=== PATIENT | male | born 1970 | race Caucasian/White ===

== ENCOUNTER 2019-05-30 11:15 | Inpatient (IN) | payer OTHER ==
--- NOTE | 2019-05-30 11:34 | PDOC ---
History of Present Illness - General Chief Complaint: Chest Pain Stated Complaint: CHEST PAIN Time Seen by Provider: 05/30/19 11:33 Past History - Past Medical History Allergies/Adverse Reactions: Allergies Allergy/AdvReac Type Severity Reaction Status Date / Time No Known Allergies Allergy Verified 05/30/19 11:56 Home Medications: Ambulatory Orders NK [No Known Home Medication] 05/30/19 COPD: No Other medical history: leg pain - Suicide/Smoking/Psychosocial Hx Smoking History: Current every day smoker Number of Cigarettes Smoked Daily: 3 Information on smoking cessation initiated: No Hx Alcohol Use: No Drug/Substance Use Hx: No *Physical Exam - Vital Signs Last Vital Signs Temp Pulse Resp BP Pulse Ox 100.2 F H 98 H 19 162/94 98 05/30/19 11:15 05/30/19 11:15 05/30/19 11:15 05/30/19 11:15 05/30/19 11:15 ED Treatment Course - LABORATORY CBC & Chemistry Diagram: 05/30/19 11:56 05/30/19 11:53 Medical Decision Making - Medical Decision Making 05/30/19 12:38 HPI 48 year old man with a history of htn and cigarette use who presents with epigastric pain that onset at 0800 and woke him from sleep, described as throbbing and radiaiting to the upper back. The patient reports the pain is more epigastric in location than in the chest, but he complains of diaphoresis, shortness of breath, and some nausea. He states he has never had a pain like this before. He reports the pain improved when sitting forward, but can also improve with lying flat. He has no other ocmplaints at bedside and endorses no other medication use. ROS GENERAL/CONSTITUTIONAL: No fever or chills. No weakness. HEAD, EYES, EARS, NOSE AND THROAT: No change in vision. No ear pain or discharge. No sore throat. CARDIOVASCULAR: See HPI RESPIRATORY: No cough, wheezing, or hemoptysis. GASTROINTESTINAL: No vomiting, diarrhea or constipation. GENITOURINARY: No dysuria, frequency, or change in urination. MUSCULOSKELETAL: No joint or muscle swelling or pain. No neck or back pain. SKIN: No rash NEUROLOGIC: No headache, vertigo, loss of consciousness, or change in strength/ sensation. PE GENERAL: Awake, alert, and fully oriented, extremely diaphoretic and anxious, sitting forward HEAD: No signs of trauma, normocephalic, atraumatic EYES: EOMI, sclera anicteric, conjunctiva clear ENT:oropharynx clear without exudates. Moist mucosa NECK: Normal ROM, supple LUNGS: No distress, speaks full sentences, clear to auscultation bilaterally HEART: tachycardic rate and regular rhythm, normal S1 and S2, no murmurs, rubs or gallops, peripheral pulses normal and equal bilaterally. ABDOMEN: Soft, + epigastric and RUQ tenderness to palpation, + epigastric guarding, no rebound. No masses EXTREMITIES : Normal inspection, Normal range of motion, no edema. No clubbing or cyanosis. NEUROLOGICAL: Cranial nerves II through XII grossly intact. Normal speech, no focal sensorimotor deficits SKIN: Warm, Dry, normal turgor, no rashes or lesions noted MDM 48 year old man with a history of htn and cigarette use who presents with epigastric pain that onset at 0800 and woke him from sleep, described as throbbing and radiaiting to the upper back. DDX including but not limited to: r/o acs consider pancreatitis vs cholecystitis W/U: - cbc, cmp, lipase, trop, ekg, cxr, abd ultrasound TX: - morphine ED Course: EKG: normal sinus rhythm HR 97, no interval abnormalities, narrow QRS, ST and T wave segments and morphology normal. labs significiant for leukocytosis and slight elevation in lipase tylenol dosed CT: concerning for free air in the abdomen. morphine redosed surgery paged second liter ivf started patient npo vancomycin, zosyn, diflucan dosed Patient to be admitted to Surgery service. Julia Guerrero, PGY2 Emergency Medicine *DC/Admit/Observation/Transfer Diagnosis at time of Disposition: Perforated bowel - Discharge Dispostion Condition at time of disposition: Fair Decision to Admit order: Yes - Referrals - Patient Instructions - Post Discharge Activity
[2019-05-30] MEDS ORDERED: SODIUM CHLORIDE 1,000 ML IV STA (11:52)
[2019-05-30] MEDS ORDERED: ACETAMINOPHEN 1000 MG/100 ML VIAL (NON FORMULARY) IVPB ONE ×2 (11:52→15:09)
[2019-05-30] MEDS ORDERED: morphine SULFATE 4 MG/ML VIAL IVPUSH ONE (11:54)
[2019-05-30] MEDS ORDERED: MORPHINE SULFATE 2 MG/ML VIAL ONE (11:57)
[2019-05-30 12:19] LABS: BASO % 0.4 % (0-2.0); EOS % 0.3 % (0-4.5); LYMPH % 7.1 % (8-40); MCH 30.7 pg (25.7-33.7); MCHC 34.1 g/dl (32.0-35.9); MEAN PLT VOLUME 9.3 fl (7.5-11.1); MONO % 4.5 % (3.8-10.2); NEUT % 87.7 % (42.8-82.8); PLATELET COUNT 229 K/MM3 (134-434); RBC 5.23 M/mm3 (4.00-5.60); WHITE BLOOD COUNT 14.9 K/mm3 (4.0-10.0)
--- NOTE | 2019-05-30 12:19 | PDOC ---
Attending Attestation - Resident Resident Name: BlaineRic carpenterie - ED Attending Attestation I have performed the following: I have examined & evaluated the patient, The case was reviewed & discussed with the resident, I agree w/resident's findings & plan, Exceptions are as noted - HPI HPI: 05/30/19 12:09 48 M presenting to ED with epigastric pain radiating to L shoulder and back. Pt states that he awoke with the pain at 8 AM. States that he drank some milk and tried to have BM with no relief of the pain. Denies N/V. Denies diarrhea/ constipation. Denies CP/SOB. Pt denies ETOH use. Denies any prior abdominal surgeries. - Physicial Exam PE: 05/30/19 12:10 GENERAL: Awake, alert, and fully oriented, in no acute distress. HEAD: No signs of trauma EYES: PERRLA, EOMI, sclera anicteric, conjunctiva clear ENT: Auricles normal inspection, hearing grossly normal, nares patent, oropharynx clear without exudates. Moist mucosa NECK: Nontender, no stepoffs, Normal ROM, supple, no lymphadenopathy, JVD, or masses LUNGS: Breath sounds equal, clear to auscultation bilaterally. No wheezes, and no crackles HEART: Regular rate and rhythm, normal S1 and S2, no murmurs, rubs or gallops ABDOMEN: + epigastric and RUQ TTP, + guarding EXTREMITIES: Normal range of motion, no edema. No clubbing or cyanosis. No cords, erythema, or tenderness NEUROLOGICAL: Cranial nerves II through XII intact. 5/5 strength and sensation in all extremities, Normal speech, normal gait, normal cerebellar function SKIN: Warm, Dry, normal turgor, no rashes or lesions noted. - Critical Care Time Total Critical Care Time: 120 Critical Care Statement: The care of this patient involved high complexity decision making to prevent further life threatening deterioration of the patient 's condition and/or to evaluate & treat vital organ system(s) failure or risk of failure. - Medical Decision Making 05/30/19 12:13 48 M with epigastric pain radiating towards back and shoulder. Exam notable for epigastric and RUQ TTP. Pt febrile in ED to 100.2. Suspicious for acute [place] vs pancreatitis. Aortic dissection less likely given equal pulses bilaterally. - Labs, lipase, trop - US RUQ and aorta - Consider CT - Pain control 05/30/19 15:29 US shows normal GB + free fluid in RUQ CT obtained, shows free air, suspect perf Abx ordered NPO Surgery consult paged 05/30/19 16:05 Surgery paged again, awaiting call back 05/30/19 16:21 Dr. Sepulveda aware of pt
[2019-05-30 12:55] LABS: ALBUMIN 4.2 g/dl (3.4-5.0); BILIRUBIN,TOTAL 0.6 mg/dL (0.2-1); BLOOD UREA NITROGEN 12.5 mg/dL (7-18); CALCIUM 10.1 mg/dL (8.5-10.1); POTASSIUM 4.4 mmol/L (3.5-5.1); TOT PROT 7.8 g/dl (6.4-8.2)
[2019-05-30 13:07] LABS: INR 0.94 (0.83-1.09); PROTHROMBIN TIME (PATIENT) 11.1 SEC (9.7-13.0)
[2019-05-30] MEDS ORDERED: FLUCONAZOLE 100 MG TABLET (UD) PO ONE (15:28)
[2019-05-30] MEDS ORDERED: VANCOMYCIN HCL 1,500 MG in DEXTROSE 5%-WATER - 500 ML IVPB ONE (15:28)
[2019-05-30] MEDS ORDERED: ACETAMINOPHEN INJECTION 100 ML IVPB ONE ×2 (15:28→20:15)
[2019-05-30] MEDS ORDERED: PIPERACILLIN/TAZOB 4.5 GM 4.5 GM in DEXTROSE 5%-WATER 100 ML IVPB ONE (15:28)
[2019-05-30] MEDS ORDERED: SODIUM CHLORIDE 1,000 ML IV SCH (15:30)
[2019-05-30] MEDS ORDERED: morphine CARPU-JECT 4 MG/1 ML DISP.SYRIN IVPUSH ONE (15:35)
[2019-05-30] MEDS ORDERED: morphine SULFATE 4 MG/ML VIAL ONE (15:36)
[2019-05-30] MEDS ORDERED: FLUCONAZOLE 100 MG TABLET (UD) ONE (16:01)
[2019-05-30] MEDS ORDERED: VANCOMYCIN 1 GRAM (PRE-DOCKED) 1,000 MG/250 ML BAG IVPB ONE (16:02)
[2019-05-30] MEDS ORDERED: PIPERACILLIN/TAZOB 4.5 GM 4.5 GM/100 ML BAG IVPB ONE (16:02)
[2019-05-30] MEDS ORDERED: MORPHINE SULFATE 2 MG/ML VIAL IVPUSH PRN (16:48)
[2019-05-30] MEDS ORDERED: LACTATED RINGERS SOLUTION 1,000 ML IV STA (16:48)
--- NOTE | 2019-05-30 16:57 | CONSULT ---
Consultation: REQUESTING PROVIDER: Dr. Herrera CONSULT REQUEST: We have been asked to medically evaluate this patient for ICU admission HISTORY OF PRESENT ILLNESS: Patient is an 79 year old male with history of back pain presents with complaint of abdominal pain. Patient endorses sudden onset of sharp, diffuse abdominal pain radiating to the back that woke him up from sleep around 8AM. Endorses that he last ate two day old pasta Bill from a restaurant, and drank a glass of milk this morning, in attempt to palliate the pain. Patient denies nausea, or vomiting. Last bowel movement was yesterday evening described as loose brown bowel movement, without blood or melena. Patient endorses taking Advil liquid gel ocassionally for pain, last taken yesterday evening. Patient denies similar symptoms in past. In ED, abdomen, pelvis CT revealed pneumoperitoneum concerning for viscus perforation. Free air within right upper abdomen. Possible diffuse colonic thickening with mesenteric stranding noted. Dilated bowel loops concerning for illeus. Patient noted to be diaphoretic, abdomen tensely distended. Past Medical History: Hypertension Past Surgical History: Open appendectomy (as child), left foot bunionectomy, discectomy Family history: Mother: heart failure -Father: cancer (unknown as to type) Social: Current smoker on and off for past 30 years. Denies alcohol consumption. Denies illicit drug use. 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 REVIEW OF SYSTEMS: CONSTITUTIONAL: Admits: diaphoresis, generalized weakness. Absent: fever, chills, malaise, loss of appetite, weight change HEENT: Absent: rhinorrhea, nasal congestion, throat pain, throat swelling, difficulty swallowing, mouth swelling, ear pain, eye pain, visual changes CARDIOVASCULAR: Absent: chest pain, syncope, palpitations, irregular heart rate, lightheadedness , peripheral edema RESPIRATORY: Admits; shortness of breath. Absent: cough, dyspnea with exertion, orthopnea, wheezing, stridor, hemoptysis GASTROINTESTINAL: Admits: abdominal pain, abdominal distension. Absent: nausea, vomiting, diarrhea , constipation, melena, hematochezia GENITOURINARY: Absent: dysuria, frequency, urgency, hesitancy, hematuria, flank pain, genital pain MUSCULOSKELETAL: Admits: back pain. Absent: myalgia, arthralgia, joint swelling, neck pain SKIN: Absent: rash, itching, pallor HEMATOLOGIC/IMMUNOLOGIC: Absent: easy bleeding, easy bruising, lymphadenopathy, frequent infections ENDOCRINE: Absent: unexplained weight gain, unexplained weight loss, heat intolerance, cold intolerance NEUROLOGIC: Absent: headache, focal weakness or paresthesias, dizziness, unsteady gait, seizure, mental status changes, bladder or bowel incontinence PSYCHIATRIC: Absent: anxiety, depression, suicidal or homicidal ideation, hallucinations. PHYSICAL EXAMINATION Vital Signs - 24 hr 05/30/19 11:15 Temperature 100.2 F H Pulse Rate 98 H Respiratory 19 Rate Blood Pressure 162/94 O2 Sat by Pulse 98 Oximetry (%) GENERAL: Awake, alert, and fully oriented. Diaphoretic, in acute distress. HEAD: Normal with no signs of trauma. EYES: Pupils equal, round and reactive to light, extraocular movements intact, sclera anicteric, conjunctiva clear. EARS, NOSE, THROAT: Ears normal, nares patent, oropharynx clear without exudates. Moist mucous membranes. NECK: Normal range of motion, supple without lymphadenopathy, or JVD LUNGS: Breath sounds equal, clear to auscultation bilaterally. No wheezes, and no crackles. No accessory muscle use. HEART: Regular rate and rhythm, normal S1 and S2 without murmur, rub or gallop. ABDOMEN: Firm, distended. Tender to light palpation x4 quadrants. Rebound history elicited. MUSCULOSKELETAL: Normal range of motion x4 joints. Strength 5/5 bilateral upper and lower extremities. EXTREMITIES: 2+ radial, dorsalis pedis pulses, warm, well-perfused. No cyanosis. No peripheral edema. NEUROLOGICAL: Cranial nerves II-XII intact. Normal speech. No gross focal deficits. PSYCHIATRIC: Cooperative. Good eye contact. Appropriate mood and affect. SKIN: Warm, diaphoretic. Horizontal well healed appendectomy surgical scar at right lower quadrant. Laboratory Results - last 24 hr 05/30/19 05/30/19 05/30/19 11:53 11:53 11:56 WBC RBC Hgb Hct MCV MCH MCHC RDW Plt Count MPV Absolute Neuts (auto) Neutrophils % Lymphocytes % Monocytes % Eosinophils % Basophils % Nucleated RBC % PT with INR INR PTT (Actin FS) 30.8 Sodium 139 Potassium 4.4 Chloride 103 Carbon Dioxide 28 Anion Gap 8 BUN 12.5 Creatinine 1.0 Est GFR (CKD-EPI)AfAm 101.26 Est GFR (CKD-EPI)NonAf 87.37 Random Glucose 169 H Lactic Acid Calcium 10.1 Total Bilirubin 0.6 AST 13 L ALT 28 Alkaline Phosphatase 106 Creatine Kinase 55 Troponin I < 0.02 Total Protein 7.8 Albumin 4.2 Lipase 544 H Blood Type Antibody Screen 05/30/19 05/30/19 05/30/19 11:56 11:56 13:06 WBC 14.9 H RBC 5.23 Hgb 16.0 Hct 47.0 MCV 90.0 MCH 30.7 MCHC 34.1 RDW 14.0 Plt Count 229 MPV 9.3 Absolute Neuts (auto) 13.0 H Neutrophils % 87.7 H Lymphocytes % 7.1 L Monocytes % 4.5 Eosinophils % 0.3 Basophils % 0.4 Nucleated RBC % 0 PT with INR 11.10 INR 0.94 PTT (Actin FS) Sodium Potassium Chloride Carbon Dioxide Anion Gap BUN Creatinine Est GFR (CKD-EPI)AfAm Est GFR (CKD-EPI)NonAf Random Glucose Lactic Acid 2.4 H* Calcium Total Bilirubin AST ALT Alkaline Phosphatase Creatine Kinase Troponin I Total Protein Albumin Lipase Blood Type Antibody Screen 05/30/19 15:06 WBC RBC Hgb Hct MCV MCH MCHC RDW Plt Count MPV Absolute Neuts (auto) Neutrophils % Lymphocytes % Monocytes % Eosinophils % Basophils % Nucleated RBC % PT with INR INR PTT (Actin FS) Sodium Potassium Chloride Carbon Dioxide Anion Gap BUN Creatinine Est GFR (CKD-EPI)AfAm Est GFR (CKD-EPI)NonAf Random Glucose Lactic Acid Calcium Total Bilirubin AST ALT Alkaline Phosphatase Creatine Kinase Troponin I Total Protein Albumin Lipase Blood Type B POSITIVE Antibody Screen Negative Active Medications Generic Name Dose Route Start Last Admin Trade Name Freq PRN Reason Stop Dose Admin Vancomycin HCl 1,500 mg/ 500 mls @ 250 mls/hr 05/30/19 15:28 Dextrose IVPB 05/30/19 17:27 ONCE ONE Sodium Chloride 1,000 mls @ 42 mls/hr 05/30/19 15:30 05/30/19 15:46 Normal Saline - IV 42 mls/hr ASDIR [facility] Administration ASSESSMENT/PLAN: Patient is an 79 year old male with history of hypertension presents with complaint of abdominal pain. Neurologic -Patient is awake, alert, fully oriented. -Monitor for signs of mental status change Cardiac -Currently normotensive. Monitor hemodynamics. Pulmonary -Saturating well on room air. -Monitor for change in oxygen demand. Maintain oxygen saturation greater than 90% Gastrointestinal -CT abdomen, pelvis reveals pneumoperitoneum concerning for viscus perforation. Free air within right upper abdomen. Possible diffuse colonic thickening with mesenteric stranding noted. Dilated bowel loops concerning for illeus. -General surgery evaluation (Dr. Sepulveda) -Lactic acidosis 2.4; patient receiving fluid hydration, and pending surgical evaluation. -NPO Infectious disease -Patient received prophylactic Vancomycin 1500mg IV, Zosyn 4.5 grams IV. -Follow blood cultures FEN -Fluids: IV normal saline -Electrolytes: Within normal limits, follow CMP -Nutrition: NPO Prophylaxis -Currently holding chemical anticoagulation pending general surgery evaluation. Disposition: Pending General Surgery evaluation. Please re-consult as necessary for further re-evaluation. Visit type - Emergency Visit Emergency Visit: Yes ED Registration Date: 05/30/19 Care time: The patient presented to the Emergency Department on the above date and was hospitalized for further evaluation of their emergent condition. - New Patient This patient is new to me today: Yes Date on this admission: 05/30/19 - Critical Care Critical Care patient: No ATTENDING PHYSICIAN STATEMENT I saw and evaluated the patient. I reviewed the resident's note and discussed the case with the resident. I agree with the resident's findings and plan as documented. SUBJECTIVE: OBJECTIVE: ASSESSMENT AND PLAN:
[2019-05-30] MEDS ORDERED: LACTATED RINGERS SOLUTION 1,000 ML IV SCH ×2 (17:00→17:15)
[2019-05-30] MEDS ORDERED: PANTOPRAZOLE SODIUM 40 MG VIAL IVPUSH SCH (17:00)
--- NOTE | 2019-05-30 17:04 | HP ---
Admitting History and Physical - Admission Chief Complaint: Abdomnial Pain History of Present Illness: 48yo male PMH developmental delay, HTN, painful LE varicose veins, s/p left foot surgery and back surgery presented to ED this afternoon report acute onset upper abdominal pain gradually worsening since 8AM. He is a poor historian. He has never experience anything similar in the past. His pain started in the upper abdomen but is now diffuse. He reports last meal was last night, he denies significant symptoms of heartburn or acid reflux. He does however take NSAID for back pain and is a daily smoker. He has not had endoscopy or previous abdominal surgery. Family history of cancer. We were called to evaluate and treat. History Source: Patient, Medical Record Limitations to Obtaining History: No Limitations - Past Medical History RECORDS CUSTODIAN: Yes: Other (Developmental Delay) Cardiovascular: Yes: HTN Musculoskeletal: Yes: Chronic low back pain, Other (Left foot bunion) - Past Surgical History Additional Past Surgical History: bunion surgery, back surgery (herniated disc) - Smoking History Smoking history: Current every day smoker Have you smoked in the past 12 months: Yes Aproximately how many cigarettes per day: 3 - Alcohol/Substance Use Hx Alcohol Use: No History of Substance Use: reports: None - Social History Usual Living Arrangement: Yes: With Spouse History of Recent Travel: Yes Other Social History: 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 denies: Chills Eyes: denies: Blind Spots, Recent Change in Vision HENT: denies: Difficult Swallowing, Throat Pain Cardiovascular: denies: Chest Pain, Palpitations Respiratory: denies: Cough, SOB Gastrointestinal: reports: Abdominal Pain, Indigestion. denies: Constipation, Diarrhea Genitourinary: denies: Burning, Discharge, Dysuria Breasts: reports: No Symptoms Reported. denies: Pain Musculoskeletal: reports: Back Pain, Other (Left foot pain). denies: Muscle Pain, Muscle Cramps Integumentary: denies: Lesions, Lump, Pallor Neurological: denies: Seizure, Syncope Endocrine: denies: Unexplained Weight Gain, Unexplained Weight Loss Hematology/Lymphatic: denies: Excessive Bleeding Psychiatric: denies: Anxiety Physical Examination Vital Signs: Vital Signs Temperature 99.8 F H 05/30/19 16:42 Pulse Rate 86 05/30/19 16:42 Respiratory Rate 19 05/30/19 16:42 Blood Pressure 136/85 05/30/19 16:42 O2 Sat by Pulse Oximetry (%) 100 05/30/19 16:42 Vital Signs Period Temp Pulse Resp BP Sys/Thomas Pulse Ox Last 24 Hr 99.8 F-100.3 F 86-98 19-20 132-162/78-94 96-100 Constitutional: Yes: Well Nourished, Calm, Mild Distress. No: No Distress Eyes: Yes: Conjunctiva Clear, EOM Intact HENT: Yes: Atraumatic, Normocephalic Cardiovascular: Yes: Regular Rate and Rhythm, S1, S2. No: Murmur Gastrointestinal: Yes: Normal Bowel Sounds, Soft, Distention, Tenderness, Tenderness, Epigastrium, Tenderness, Rebound, Other (centrally typmpanitic). No : Abdomen, Obese, Ascites, Pulsatile Mass, Vomiting Renal/: No: CVA Tenderness - Left, CVA Tenderness - Right Extremities: Yes: Other (varicose veins). No: Cool, Cyanosis Edema: Yes Peripheral Pulses: Left Radial: 2+, Right Radial: 2+, Left Doralis Pedis: 2+, Right Dorsalis Pedis: 2+, Left Femoral: 2+, Right Femoral: 2+ Labs: CBC, BMP 05/30/19 11:56 05/30/19 11:53 Imaging - Results Cat Scan: Report Reviewed, Image Reviewed (Free air uncertain origin) Problem List - Problems (1) Perforated abdominal viscus Assessment/Plan: 48yo male HTN with free air on CT scan and peritonitis. He has WBC 14.9 and fever 100.3, otherwise hemodynamically stable NPO and IVF hydation IV antibiotics Hospitalist, GI and ID consults OR for emergency exploratoy laparotomy, possible bowel resection, possible ostomy, possible shannan patch Discussed with patient risks, benefits and alternatives of aforemention Procedure, including but not limited to bleeding, infection, injury to adjacent structures, leak or injury, intraabdominal abscess, incisional hernia, need for further procedures, ; alternatives include antibiotics, delayed or no surgery - risks of this include failure of nonoperative therapy, perforation, sepsis, recurrence, . Patient desires to proceed with operation - will take to OR for above. Informed consent signed for same. Thank you for the opportunity to participate in the care of this patient. Code(s): UGV0276 - (2) HTN (hypertension) Code(s): I10 - ESSENTIAL (PRIMARY) HYPERTENSION Qualifiers: Hypertension type: essential hypertension Qualified Code(s): I10 - Essential (primary) hypertension (3) Abdominal pain in male Code(s): R10.9 - UNSPECIFIED ABDOMINAL PAIN (4) NSAID induced gastritis Code(s): K29.60 - OTHER GASTRITIS WITHOUT BLEEDING; T39.395A - ADVERSE EFFECT OF NONSTEROIDAL ANTI-INFLAMMATORY DRUGS, INIT (5) NSAID-associated gastropathy Code(s): K31.9 - DISEASE OF STOMACH AND DUODENUM, UNSPECIFIED; T39.395A - ADVERSE EFFECT OF NONSTEROIDAL ANTI-INFLAMMATORY DRUGS, INIT
[2019-05-30] MEDS ORDERED: PANTOPRAZOLE SODIUM 40 MG/100 ML BAG IVPB ONE (17:10)
[2019-05-30] MEDS ORDERED: PROMETHAZINE HCL 25 MG/1 ML VIAL IVPUSH PRN (17:13)
[2019-05-30] MEDS ORDERED: ONDANSETRON 4 MG/2 ML VIAL IVPUSH PRN ×2 (17:13→20:34)
[2019-05-30] MEDS ORDERED: FLUCONAZOLE IVPB SCH (17:15)
[2019-05-30] MEDS ORDERED: NS IVPB SCH (17:15)
[2019-05-30] MEDS ORDERED: HYDROmorphone *PCA* 10MG/50ML DISP.SYRIN PCA SCH ×2 (17:15→20:38)
--- NOTE | 2019-05-30 17:17 | EKG ---
Test Reason : Blood Pressure : / mmHG Vent. Rate : 097 BPM Atrial Rate : 097 BPM P-R Int : 144 ms QRS Dur : 078 ms QT Int : 360 ms P-R-T Axes : 044 017 052 degrees QTc Int : 457 ms NORMAL SINUS RHYTHM SEPTAL INFARCT , AGE UNDETERMINED ABNORMAL ECG NO PREVIOUS ECGS AVAILABLE Confirmed by CHU MAY, MARTIN ([id number]) on 05/30/2019 5:17:13 PM Referred By: Confirmed By:MARTIN SAGE MD
[2019-05-30] MEDS ORDERED: PROPOFOL 20 ML ONE ×2 (17:37)
[2019-05-30] MEDS ORDERED: fentaNYL CITRATE 250 MCG/5 ML VIAL ONE ×2 (17:37→19:04)
[2019-05-30] MEDS ORDERED: ROCURONIUM BROMIDE 50 MG/5 ML SYRINGE ONE (17:37)
[2019-05-30] MEDS ORDERED: EPHEDRINE SULFATE/0.9% NACL/PF 50 MG/10 ML SYRINGE NR ONE (17:38)
[2019-05-30] MEDS ORDERED: LIDOCAINE HCL/PF 2% SDV 5ML VIAL ONE ×2 (17:38→19:19)
--- NOTE | 2019-05-30 17:42 | CONSULT ---
Consultation: REQUESTING PROVIDER:Dr. Sepulveda CONSULT REQUEST: We have been asked to medically evaluate this patient for high blood pressure. HISTORY OF PRESENT ILLNESS: Patient is a 48 year old male with no significant past medical history, presented to the ED due to sudden onset diffuse abdominal pain, radiating to the back that started this morning. Patient reported he experienced severe diffuse abdominal pain that woke him up this morning, that was accompanied by abdominal bloating. He denies any fever, chills, nausea or vomiting, diarrhea, constipation. Patient reported his only medication is Advil which he takes as needed for chronic back pain. Due to persistent pain, patient came to the ED. At the ED, CT scan of the abdomen revealed pneumoperitoeum concerning for viscus perforation, free air within the right upper abdomen. Patient was evaluated by Surgery and sent directly to the OR. Past Medical History: none Past Surgical History: Open appendectomy, left foot bunionectomy, discectomy Family history: Father: cancer (unknown as to type) Social: Current smoker on and off for past 30 years. Denies alcohol consumption. Denies illicit drug use. 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 REVIEW OF SYSTEMS: CONSTITUTIONAL: Absent: fever, chills, diaphoresis, generalized weakness, malaise, loss of appetite, weight change HEENT: Absent: rhinorrhea, nasal congestion, throat pain, throat swelling, difficulty swallowing, mouth swelling, ear pain, eye pain, visual changes CARDIOVASCULAR: Absent: chest pain, syncope, palpitations, irregular heart rate, lightheadedness , peripheral edema RESPIRATORY: Absent: cough, shortness of breath, dyspnea with exertion, orthopnea, wheezing, stridor, hemoptysis GASTROINTESTINAL: abdominal pain Absent: abdominal distension, nausea, vomiting, diarrhea, constipation, melena, hematochezia GENITOURINARY: Absent: dysuria, frequency, urgency, hesitancy, hematuria, flank pain, genital pain MUSCULOSKELETAL: Absent: myalgia, arthralgia, joint swelling, back pain, neck pain SKIN: Absent: rash, itching, pallor HEMATOLOGIC/IMMUNOLOGIC: Absent: easy bleeding, easy bruising, lymphadenopathy, frequent infections ENDOCRINE: Absent: unexplained weight gain, unexplained weight loss, heat intolerance, cold intolerance NEUROLOGIC: Absent: headache, focal weakness or paresthesias, dizziness, unsteady gait, seizure, mental status changes, bladder or bowel incontinence PSYCHIATRIC: Absent: anxiety, depression, suicidal or homicidal ideation, hallucinations. PHYSICAL EXAMINATION Vital Signs - 24 hr 05/30/19 05/30/19 05/30/19 11:15 16:42 17:27 Temperature 100.2 F H 99.8 F H 100.3 F H Pulse Rate 98 H Pulse Rate [ 86 97 H Right Radial] Respiratory 19 19 20 Rate Blood Pressure 162/94 Blood Pressure 136/85 132/78 [Left Arm] O2 Sat by Pulse 98 100 96 Oximetry (%) GENERAL: Awake, alert, and fully oriented, in mild distress. HEAD: Normal with no signs of trauma. EYES: PERRLA, EOMI, sclera anicteric, conjunctiva clear. EARS, NOSE, THROAT: Dry mucous membranes. NECK: Normal range of motion, supple. LUNGS: Breath sounds equal, clear to auscultation bilaterally. HEART: Regular rate and rhythm, normal S1 and S2 without murmur, rub or gallop. ABDOMEN: +Tenderness on all quadrants, nondistended, NABS. +Guarding. UPPER EXTREMITIES: 2+ pulses, warm, well-perfused.No peripheral edema. LOWER EXTREMITIES: 2+ pulses, warm, well-perfused. No peripheral edema. SKIN: Warm, dry, normal turgor, no rashes or lesions noted. Laboratory Results - last 24 hr 05/30/19 05/30/19 05/30/19 11:53 11:53 11:56 WBC RBC Hgb Hct MCV MCH MCHC RDW Plt Count MPV Absolute Neuts (auto) Neutrophils % Lymphocytes % Monocytes % Eosinophils % Basophils % Nucleated RBC % PT with INR INR PTT (Actin FS) 30.8 Sodium 139 Potassium 4.4 Chloride 103 Carbon Dioxide 28 Anion Gap 8 BUN 12.5 Creatinine 1.0 Est GFR (CKD-EPI)AfAm 101.26 Est GFR (CKD-EPI)NonAf 87.37 Random Glucose 169 H Lactic Acid Calcium 10.1 Total Bilirubin 0.6 AST 13 L ALT 28 Alkaline Phosphatase 106 Creatine Kinase 55 Troponin I < 0.02 Total Protein 7.8 Albumin 4.2 Lipase 544 H Blood Type Antibody Screen 05/30/19 05/30/19 05/30/19 11:56 11:56 13:06 WBC 14.9 H RBC 5.23 Hgb 16.0 Hct 47.0 MCV 90.0 MCH 30.7 MCHC 34.1 RDW 14.0 Plt Count 229 MPV 9.3 Absolute Neuts (auto) 13.0 H Neutrophils % 87.7 H Lymphocytes % 7.1 L Monocytes % 4.5 Eosinophils % 0.3 Basophils % 0.4 Nucleated RBC % 0 PT with INR 11.10 INR 0.94 PTT (Actin FS) Sodium Potassium Chloride Carbon Dioxide Anion Gap BUN Creatinine Est GFR (CKD-EPI)AfAm Est GFR (CKD-EPI)NonAf Random Glucose Lactic Acid 2.4 H* Calcium Total Bilirubin AST ALT Alkaline Phosphatase Creatine Kinase Troponin I Total Protein Albumin Lipase Blood Type Antibody Screen 05/30/19 15:06 WBC RBC Hgb Hct MCV MCH MCHC RDW Plt Count MPV Absolute Neuts (auto) Neutrophils % Lymphocytes % Monocytes % Eosinophils % Basophils % Nucleated RBC % PT with INR INR PTT (Actin FS) Sodium Potassium Chloride Carbon Dioxide Anion Gap BUN Creatinine Est GFR (CKD-EPI)AfAm Est GFR (CKD-EPI)NonAf Random Glucose Lactic Acid Calcium Total Bilirubin AST ALT Alkaline Phosphatase Creatine Kinase Troponin I Total Protein Albumin Lipase Blood Type B POSITIVE Antibody Screen Negative Active Medications Generic Name Dose Route Start Last Admin Trade Name Freq PRN Reason Stop Dose Admin Fentanyl 50 mcg 05/30/19 17:13 Sublimaze Injection - IVPUSH [id number] PRN PAIN-PACU ORDER X 4 DOSES ONLY Heparin Sodium (Porcine) 5,000 unit 05/30/19 18:00 Heparin - SQ Q8H-IV GIOVANA Hydromorphone HCl 10 mg 05/30/19 17:15 Hydromorphone 10 Mg/50 Ml-Ns SHIRT SORTER 06/06/19 17:14 SHIRT SORTER GIOVANA Protocol Sodium Chloride 1,000 mls @ 42 mls/hr 05/30/19 15:30 05/30/19 15:46 Normal Saline - IV 42 mls/hr ASDIR GIOVANA Administration Lactated Ringer's 1,000 mls @ 125 mls/hr 05/30/19 17:00 Lactated Ringers Solution IV ASDIR GIOVANA Lactated Ringer's 1,000 mls @ 1,000 mls/hr 05/30/19 16:48 05/30/19 17:22 Lactated Ringers Solution IV 05/30/19 17:47 1,000 mls/hr ONCE STA Administration Levofloxacin 750 mg in 150 mls @ 100 mls/hr 05/30/19 17:01 05/30/19 17:23 Levaquin 750 Mg Premixed Ivpb - IVPB 05/30/19 18:30 100 mls/hr ONCE ONE Administration Protocol Metronidazole 500 mg in 100 mls @ 100 mls/hr 05/30/19 18:00 Flagyl 500mg Premixed Ivpb - IVPB Q8H-IV GIOVANA Fluconazole 50 mls @ 50 mls/hr 05/30/19 17:15 Diflucan 200 Mg/Ns Premixed Ivpb - IVPB DAILY GIOVANA Lactated Ringer's 1,000 mls @ 125 mls/hr 05/30/19 17:15 Lactated Ringers Solution IV ASDIR GIOVANA Morphine Sulfate 4 mg 05/30/19 16:48 Morphine Sulfate IVPUSH Q4H PRN PAIN LEVEL 7 - 10 Ondansetron HCl 4 mg 05/30/19 17:13 Zofran Injection IVPUSH Q6H PRN NAUSEA AND/OR VOMITING Pantoprazole Sodium 40 mg 05/30/19 17:00 05/30/19 17:20 Protonix Iv IVPUSH 40 mg DAILY GIOVANA Administration Promethazine HCl 12.5 mg 05/30/19 17:13 Phenergan Injection - IVPUSH Q6H PRN NAUSEA-FOR RESCUE AFTER 15 MIN ASSESSMENT/PLAN: #Abdominal pain 2/2 Pneumoperitoneum -CTAP: pneumoperitoneum concerning for viscus perforation. Free air within right upper abdomen. Possible diffuse colonic thickening with mesenteric stranding noted. Dilated bowel loops concerning for illeus. -Surgery (Dr Sepulveda) on board -To OR for emergency exploratory laparotomy -Lactic acid 2.4 -Continue IV fluids -Keep NPO -IV Antibiotics #FEN -IV LR @125cc/hr -Routine bmp monitoring -NPO #Prophylaxis -SCDs #Disposition -full code -To OR for emergency exploratory laparotomy Visit type - Emergency Visit Emergency Visit: Yes ED Registration Date: 05/30/19 Care time: The patient presented to the Emergency Department on the above date and was hospitalized for further evaluation of their emergent condition. - New Patient This patient is new to me today: Yes Date on this admission: 06/11/19 - Critical Care Critical Care patient: No ATTENDING PHYSICIAN STATEMENT I saw and evaluated the patient. I reviewed the resident's note and discussed the case with the resident. I agree with the resident's findings and plan as documented. SUBJECTIVE: OBJECTIVE: ASSESSMENT AND PLAN:
--- NOTE | 2019-05-30 17:47 | OP ---
Operative Note - Note: Operative Date: 05/30/19 Pre-Operative Diagnosis: perforated viscus, surgical abdomen, free air Operation: Exploratory lapartomy, Wilton Singh Omental Patch of pre-pyloic gastric ulcer Findings: 1cm anterior perforation in pre-pyloric ulcer, omental patch applied with 2-0 silk suture Post-Operative Diagnosis: Other (anterior pre-pyloric ulcer) Surgeon: Luis Antonio Sepulveda Network Infrastructure Architect: Deep Cruz Anesthesiologist/CONSTRUCTION RIGGER: Mary Hood Anesthesia: General Specimens Removed: none Estimated Blood Loss (mls): 20 Drains & Tubes with Location: andino, RUQ CHRIST size 10 flat Drains, Volume Out (mls): 900 (andino) Fluid Volume Replaced (mls): 1,500 Operative Report Dictated: Yes
[2019-05-30] MEDS ORDERED: HEPARIN NA (PORCINE) 5,000 UNITS/ML 1ML VIAL SQ SCH (18:00)
--- NOTE | 2019-05-30 18:15 | PN ---
Teaching Attending Note Name of Resident: Darcie Rodríguez ATTENDING PHYSICIAN STATEMENT I saw and evaluated the patient. I reviewed the resident's note and discussed the case with the resident. I agree with the resident's findings and plan as documented. PCP: [facility] (covered by Dr. PINZON) SUBJECTIVE: Complains of severe abdominal pain, diaphoresis, fever OBJECTIVE: T 100.3 Hemodynamically Stable. Diaphoretic ++. Mildly confused. Last Vital Signs Temp Pulse Resp BP Pulse Ox 100.3 F H 97 H 20 132/78 96 05/30/19 17:27 05/30/19 17:27 05/30/19 17:27 05/30/19 17:27 05/30/19 17:27 HEENT - Atrauamtic, Normocephalic. Heart - S1, S2, RRR Lungs - clear to auscultation Abdomen - Tender++. Decreased bowel Sounds normal. Extremities - no edema, no calf tenderness Laboratory Results - last 24 hr 05/30/19 05/30/19 05/30/19 11:53 11:53 11:56 WBC RBC Hgb Hct MCV MCH MCHC RDW Plt Count MPV Absolute Neuts (auto) Neutrophils % Lymphocytes % Monocytes % Eosinophils % Basophils % Nucleated RBC % PT with INR INR PTT (Actin FS) 30.8 Sodium 139 Potassium 4.4 Chloride 103 Carbon Dioxide 28 Anion Gap 8 BUN 12.5 Creatinine 1.0 Est GFR (CKD-EPI)AfAm 101.26 Est GFR (CKD-EPI)NonAf 87.37 Random Glucose 169 H Lactic Acid Calcium 10.1 Total Bilirubin 0.6 AST 13 L ALT 28 Alkaline Phosphatase 106 Creatine Kinase 55 Troponin I < 0.02 Total Protein 7.8 Albumin 4.2 Lipase 544 H Blood Type Antibody Screen 05/30/19 05/30/19 05/30/19 11:56 11:56 13:06 WBC 14.9 H RBC 5.23 Hgb 16.0 Hct 47.0 MCV 90.0 MCH 30.7 MCHC 34.1 RDW 14.0 Plt Count 229 MPV 9.3 Absolute Neuts (auto) 13.0 H Neutrophils % 87.7 H Lymphocytes % 7.1 L Monocytes % 4.5 Eosinophils % 0.3 Basophils % 0.4 Nucleated RBC % 0 PT with INR 11.10 INR 0.94 PTT (Actin FS) Sodium Potassium Chloride Carbon Dioxide Anion Gap BUN Creatinine Est GFR (CKD-EPI)AfAm Est GFR (CKD-EPI)NonAf Random Glucose Lactic Acid 2.4 H* Calcium Total Bilirubin AST ALT Alkaline Phosphatase Creatine Kinase Troponin I Total Protein Albumin Lipase Blood Type Antibody Screen 05/30/19 15:06 WBC RBC Hgb Hct MCV MCH MCHC RDW Plt Count MPV Absolute Neuts (auto) Neutrophils % Lymphocytes % Monocytes % Eosinophils % Basophils % Nucleated RBC % PT with INR INR PTT (Actin FS) Sodium Potassium Chloride Carbon Dioxide Anion Gap BUN Creatinine Est GFR (CKD-EPI)AfAm Est GFR (CKD-EPI)NonAf Random Glucose Lactic Acid Calcium Total Bilirubin AST ALT Alkaline Phosphatase Creatine Kinase Troponin I Total Protein Albumin Lipase Blood Type B POSITIVE Antibody Screen Negative Current Medications Generic Name Dose Route Start Last Admin Trade Name Freq PRN Reason Stop Dose Admin Fentanyl 50 mcg 05/30/19 17:13 Sublimaze Injection - IVPUSH [id number] PRN PAIN-PACU ORDER X 4 DOSES ONLY Heparin Sodium (Porcine) 5,000 unit 05/30/19 18:00 Heparin - SQ Q8H-IV GIOVANA Hydromorphone HCl 10 mg 05/30/19 17:15 Hydromorphone 10 Mg/50 Ml-Ns PRINTING MECHANIST 06/06/19 17:14 PRINTING MECHANIST GIOVANA Protocol Sodium Chloride 1,000 mls @ 42 mls/hr 05/30/19 15:30 05/30/19 15:46 Normal Saline - IV 42 mls/hr ASDIR GIOVANA Administration Lactated Ringer's 1,000 mls @ 125 mls/hr 05/30/19 17:00 Lactated Ringers Solution IV ASDIR GIOVANA Levofloxacin 750 mg in 150 mls @ 100 mls/hr 05/30/19 17:01 05/30/19 17:23 Levaquin 750 Mg Premixed Ivpb - IVPB 05/30/19 18:30 100 mls/hr ONCE ONE Administration Protocol Metronidazole 500 mg in 100 mls @ 100 mls/hr 05/30/19 18:00 Flagyl 500mg Premixed Ivpb - IVPB Q8H-IV GIOVANA Fluconazole 50 mls @ 50 mls/hr 05/30/19 17:15 Diflucan 200 Mg/Ns Premixed Ivpb - IVPB DAILY GIOVANA Lactated Ringer's 1,000 mls @ 125 mls/hr 05/30/19 17:15 Lactated Ringers Solution IV ASDIR GIOVANA Morphine Sulfate 4 mg 05/30/19 16:48 Morphine Sulfate IVPUSH Q4H PRN PAIN LEVEL 7 - 10 Ondansetron HCl 4 mg 05/30/19 17:13 Zofran Injection IVPUSH Q6H PRN NAUSEA AND/OR VOMITING Pantoprazole Sodium 40 mg 05/30/19 17:00 05/30/19 17:20 Protonix Iv IVPUSH 40 mg DAILY GIOVANA Administration Promethazine HCl 12.5 mg 05/30/19 17:13 Phenergan Injection - IVPUSH Q6H PRN NAUSEA-FOR RESCUE AFTER 15 MIN Home Medications Medication Instructions Recorded NK [No Known Home Medication] 05/30/19 ASSESSMENT AND PLAN: 48 year old male wit no significant PMH, prior toe and spine surgery, presents with acute onset epigastric pain this am, radiating to back, without nausea/ vomiting/blood per rectum. Currently febrile, diaphoretic, found to have pneumoperitoneum on CT Abdomen/Pelvis. Medicine service consulted for medical management. Patient has no medical history and is not on any medications. He takes Advil OTC for back pain but no prescription medications. He is currently normotensive but does have an acute abdomen with fever, leukocytosis, elevated lactate requiring urgent surgery. IV Abx as per Surgery. Cady-op IV hydration, Analgesia, and DVT Px as per Surgery. Thank you for the kind consideraion of this consultation. This patient attends [facility], covered by Dr. Pinzon.
[2019-05-30] MEDS ORDERED: NEOSTIGMINE METHYLSULFATE 0.5 MG/1 ML - 10 ML MDV ONE (19:04)
[2019-05-30] MEDS ORDERED: DEXAMETHASONE SOD PHOSPHATE 4 MG/1 ML VIAL ONE (19:19)
[2019-05-30] MEDS ORDERED: GLYCOPYRROLATE 0.2 MG/1 ML VIAL ONE (19:19)
[2019-05-30] MEDS ORDERED: ONDANSETRON 4 MG/2 ML VIAL ONE ×2 (19:19→19:21)
[2019-05-30] MEDS ORDERED: HYDROmorphone *PCA* 10MG/50ML DISP.SYRIN ONE (20:16)
[2019-05-30] MEDS ORDERED: PANTOPRAZOLE SODIUM 40 MG VIAL IVPUSH ONE (20:25)
[2019-05-30] MEDS ORDERED: PANTOPRAZOLE SODIUM 80 MG in SODIUM CHLORIDE 100 ML IVPB SCH (20:30)
[2019-05-30] MEDS ORDERED: ACETAMINOPHEN 1000 MG/100 ML VIAL (NON FORMULARY) IVPB PRN (20:36)
[2019-05-30] MEDS: PANTOPRAZOLE SODIUM 40 MG VIAL IVPUSH ONE (21:05)
[2019-05-30] MEDS ORDERED: PANTOPRAZOLE SODIUM 40 MG/100 ML PRE-DOCKED IVPB ONE (21:08)
[2019-05-31] MEDS: HEPARIN NA (PORCINE) 5,000 UNITS/ML 1ML VIAL SQ SCH ×3 (01:28→17:52)
[2019-05-31] MEDS: LACTATED RINGERS SOLUTION 1,000 ML IV SCH ×2 (04:55→23:50)
[2019-05-31] MEDS ORDERED: PT OWN MED DRAWER 7, Y5N ONE ×3 (06:01→10:25)
[2019-05-31] MEDS ORDERED: PANTOPRAZOLE SODIUM 80 MG in SODIUM CHLORIDE 100 ML IVPB SCH (06:30)
[2019-05-31] MEDS: PANTOPRAZOLE SODIUM 80 MG in SODIUM CHLORIDE 100 ML IVPB SCH ×3 (07:33→17:49)
[2019-05-31 08:44] LABS: HEMATOCRIT 39.4 % (35.4-49); HEMOGLOBIN 13.7 GM/dL (11.7-16.9); MCHC 34.8 g/dl (32.0-35.9); MEAN CELL VOLUME 89.2 fl (80-96); MEAN PLT VOLUME 9.9 fl (7.5-11.1); PLATELET COUNT 158 K/MM3 (134-434); RBC 4.41 M/mm3 (4.00-5.60); RDW 14.1 % (11.9-15.9); WHITE BLOOD COUNT 12.3 K/mm3 (4.0-10.0)
--- NOTE | 2019-05-31 08:53 | CON.GI ---
Consult Consult Specialty:: GI Referred by:: Dr. Sepulveda Reason for Consultation:: Perforated pre-pyloric ulcer - History of Present Illness Chief Complaint: Abdominal pain History of Present Illness: 48M admitted through [facility] yesterday afternoon for evaluation of progressive abdominal pain. Pain began earlier yesterday morning. CT scan revealed pneumoperitoneum. He was taken to the OR and a perforated pre-pyloric gastric ulcer was noted and he underwent shannan patch repair. He describes occasional NSAID use and is a daily cigarette smoker. Prior to the onset nof his pain he denied any unintentional weight loss, early satiety, change in bowel habits, melena, rectal bleeding. He has never had an upper endoscopy or colonoscopy. He may have an aunt with colon cancer. He currently states feeling well with some pain at the incision site. 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 - Alcohol/Substance Use Hx Alcohol Use: No History of Substance Use: reports: None - Smoking History Smoking history: Current every day smoker Have you smoked in the past 12 months: Yes Aproximately how many cigarettes per day: 3 - Social History Usual Living Arrangement: With Spouse ADL: Independent Occupation: Works at [employer] in [place] Place of : [employer] History of Recent Travel: No Home Medications - Allergies Allergies/Adverse Reactions: Allergies Allergy/AdvReac Type Severity Reaction Status Date / Time No Known Allergies Allergy Verified 05/30/19 11:56 - Home Medications Home Medications: Ambulatory Orders NK [No Known Home Medication] 05/30/19 Family Disease History - Family Disease History Family Disease History: Heart Disease: Mother (: 69: ? COPD complications), CA: Father (: 50's: Lung Ca), Other: Mother, Brother (1, healthy), Sister (2 , healthy), Daughter (1, healthy) Other Family History: Aunt possibly with colon cancer Review of Systems - Review of Systems Constitutional: reports: Chills, Diaphoresis Cardiovascular: denies: Chest Pain Respiratory: denies: SOB Gastrointestinal: reports: Abdominal Pain. denies: Constipation, Nausea, Rectal Bleeding Physical Exam-GI Vital Signs: Vital Signs Temperature 98.9 F 05/31/19 05:50 Pulse Rate 83 05/31/19 06:30 Respiratory Rate 16 05/31/19 06:30 Blood Pressure 140/78 05/31/19 06:30 O2 Sat by Pulse Oximetry (%) 97 05/31/19 06:30 Constitutional: Yes: Calm Eyes: No: Sclera Icterus HENT: Yes: Other (NGT in place with scant bilious aspirate) Cardiovascular: Yes: Regular Rate and Rhythm Respiratory: Yes: CTA Bilaterally Gastrointestinal Inspection: Yes: Other (surgical dressing in place in mid abdomen with CHRIST drain adjacent to it. serosanguinous fluid in the CHRIST drain.) ...Auscultate: Yes: Normoactive Bowel Sounds ...Palpate: Yes: Soft, Tenderness (TTP at surgical site) ...Percussion: No: Tympanitic Edema: No (No LE edema) Neurological: Yes: Alert Labs: INR, PTT INR 0.94 (0.83-1.09) 05/30/19 11:56 Hepatic Panel Total Bilirubin 0.6 mg/dL (0.2-1) 05/30/19 11:53 AST 13 U/L (15-37) L 05/30/19 11:53 ALT 28 U/L (13-61) 05/30/19 11:53 Alkaline Phosphatase 106 U/L (45-117) 05/30/19 11:53 Albumin 4.2 g/dl (3.4-5.0) 05/30/19 11:53 Imaging - Results Cat Scan: Report Reviewed, Image Reviewed Problem List - Problems (1) Perforated gastric ulcer Assessment/Plan: S/P Shannan patch repair H. pylori serology ordered H. Pylori stool antigen (however increased false negative reate on PPI therapy) Patient advised to avoid NSAIDs / tobacco cessation Outpatient EGD and will need screening colonoscopy as well. Gave patient my card to arrange follow-up Post op care per surgery Code(s): K25.5 - CHRONIC OR UNSPECIFIED GASTRIC ULCER WITH PERFORATION
[2019-05-31 09:10] LABS: ALBUMIN 2.7 g/dl (3.4-5.0); BILIRUBIN,TOTAL 0.6 mg/dL (0.2-1); BLOOD UREA NITROGEN 10.2 mg/dL (7-18); CALCIUM 8.6 mg/dL (8.5-10.1); CREATININE 0.9 mg/dL (0.55-1.3); MAGNESIUM 1.6 mg/dL (1.8-2.4); PHOSPHOROUS 3.1 mg/dL (2.5-4.9); TOT PROT 5.3 g/dl (6.4-8.2)
[2019-05-31] MEDS ORDERED: FLUCONAZOLE IVPB SCH (10:00)
[2019-05-31] MEDS ORDERED: NS IVPB SCH (10:00)
--- NOTE | 2019-05-31 10:13 | CON.ID ---
Consult Consult Specialty:: infectious diseases Referred by:: Reason for Consultation:: perforated viscus,post op - History of Present Illness Chief Complaint: abd pain History of Present Illness: 48yo male PMH developmental delay, HTN, painful LE varicose veins, s/p left foot surgery and back surgery came to the hospital because of ac onset of abd pain patient was worked up and found to ahve perforation and seen by surgery and patient was taken to the operating room and patient underwent surgery and is now post op patient had perforation in pre-pyloric ulcer, and omental patch applied - History Source History Provided By: Patient Limitations to Obtaining History: No Limitations - 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) Cardio/Vascular: Yes: HTN Psych: Yes: Other (Developmental Delay) Musculoskeletal: Yes: Chronic low back pain, Other (Left foot bunion) - Past Surgical History Additional Surgical History: 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 - Alcohol/Substance Use Hx Alcohol Use: No History of Substance Use: reports: None - Smoking History Smoking history: Current every day smoker Have you smoked in the past 12 months: Yes Aproximately how many cigarettes per day: 3 - Social History Usual Living Arrangement: With Spouse ADL: Independent Occupation: Works at [employer] in [place] History of Recent Travel: No Home Medications - Allergies Allergies/Adverse Reactions: Allergies Allergy/AdvReac Type Severity Reaction Status Date / Time No Known Allergies Allergy Verified 05/30/19 11:56 - Home Medications Home Medications: Ambulatory Orders NK [No Known Home Medication] 05/30/19 Family Disease History - Family Disease History Family Disease History: Heart Disease: Mother (: 69: ? COPD complications), CA: Father (: 50's: Lung Ca), Other: Mother, Brother (1, healthy), Sister (2 , healthy), Daughter (1, healthy) Other Family History: Aunt possibly with colon cancer Review of Systems - Review of Systems Constitutional: reports: No Symptoms Eyes: reports: No Symptoms HENT: reports: No Symptoms Neck: reports: No Symptoms Cardiovascular: reports: No Symptoms Respiratory: reports: No Symptoms Gastrointestinal: reports: Abdominal Pain Genitourinary: reports: No Symptoms Musculoskeletal: reports: No Symptoms Integumentary: reports: No Symptoms Neurological: reports: No Symptoms Endocrine: reports: No Symptoms Hematology/Lymphatic: reports: No Symptoms Psychiatric: reports: No Symptoms Physical Exam Vital Signs: Vital Signs Temperature 98.9 F 05/31/19 05:50 Pulse Rate 86 05/31/19 08:30 Respiratory Rate 18 05/31/19 08:30 Blood Pressure 130/75 05/31/19 08:30 O2 Sat by Pulse Oximetry (%) 97 05/31/19 08:30 Constitutional: Yes: No Distress, Calm HENT: Yes: Atraumatic, Normocephalic Cardiovascular: Yes: Regular Rate and Rhythm Respiratory: Yes: Regular, CTA Bilaterally Gastrointestinal: Yes: Other (ng tube in place,absent bowel sounds) Musculoskeletal: Yes: WNL Extremities: Yes: WNL Neurological: Yes: Alert Psychiatric: Yes: Alert Labs: CBC, BMP 05/31/19 08:00 05/31/19 08:00 Imaging - Results Chest X-ray: Report Reviewed, Image Reviewed Cat Scan: Report Reviewed, Image Reviewed Ultrasound: Report Reviewed, Image Reviewed Assessment/Plan Problem List - Problems (1) Perforated abdominal viscus Code(s): FMC1209 - (2) HTN (hypertension) Code(s): I10 - ESSENTIAL (PRIMARY) HYPERTENSION Qualifiers: Hypertension type: essential hypertension Qualified Code(s): I10 - Essential (primary) hypertension (3) Abdominal pain in male Code(s): R10.9 - UNSPECIFIED ABDOMINAL PAIN (4) NSAID induced gastritis Code(s): K29.60 - OTHER GASTRITIS WITHOUT BLEEDING; T39.395A - ADVERSE EFFECT OF NONSTEROIDAL ANTI-INFLAMMATORY DRUGS, INIT (5) NSAID-associated gastropathy Code(s): K31.9 - DISEASE OF STOMACH AND DUODENUM, UNSPECIFIED; T39.395A - ADVERSE EFFECT OF NONSTEROIDAL ANTI-INFLAMMATORY DRUGS, INIT plan continue current mgmt would s tart patient on zosyn iv fluids rest as per surgery
[2019-05-31] MEDS ORDERED: PIPERACILLIN/TAZOBACTAM 3.375 GM VIAL IVPB ONE ×2 (10:53→17:46)
[2019-05-31] MEDS ORDERED: DEXTROSE 5%-WATER - 50 ML IVPB ONE ×2 (10:53→17:46)
[2019-05-31] MEDS: PIPERACILLIN/TAZOB 3.375 GM 3.375 GM in DEXTROSE 5%-WATER - 50 ML IVPB SCH ×2 (10:54→17:50)
--- NOTE | 2019-05-31 10:55 | PN ---
HC Provider Note Provider Note: Anesthesia Post Op Note Pt s/p GA for ex-lap perforated viscus Pt awake alert reports being comfortable on MANAGING CONSULTANT NG and andino remain in situ VSS no apparent anesthesia complications Odette Herring.
[2019-05-31 12:56] VITALS: BMI 25.9
--- NOTE | 2019-05-31 16:56 | PN ---
Progress Note, Physician Chief Complaint: abdominal pain History of Present Illness: 48yo male PMH developmental delay, HTN, painful LE varicose veins, s/p left foot surgery and back surgery presented to ED this afternoon report acute onset upper abdominal pain gradually worsening since 8AM. stable since surgery - Current Medication List Current Medications: Active Medications Acetaminophen (Ofirmev Injection -) 1,000 mg IVPB Q6H PRN PRN Reason: FEVER Last Admin: 05/30/19 20:20 Dose: 1,000 mg Heparin Sodium (Porcine) (Heparin -) 5,000 unit SQ Q8H-IV [facility] Last Admin: 05/31/19 09:14 Dose: 5,000 unit Hydromorphone HCl (Hydromorphone 10 Mg/50 Ml-Ns) 10 mg NURSE AIDE EVALUATOR NURSE AIDE EVALUATOR [facility]NA; Protocol Stop: 06/06/19 17:14 Last Admin: 05/30/19 20:30 Dose: 10 mg Fluconazole (Diflucan 200 Mg/Ns Premixed Ivpb -) 50 mls @ 50 mls/hr IVPB DAILY [facility] Last Admin: 05/31/19 10:27 Dose: 50 mls/hr Metronidazole (Flagyl 500mg Premixed Ivpb -) 500 mg in 100 mls @ 100 mls/hr IVPB Q8H-IV [facility] Last Admin: 05/31/19 09:14 Dose: 100 mls/hr Pantoprazole Sodium 80 mg/ (Sodium Chloride) 100 mls @ 10 mls/hr IVPB Q10H [facility] Last Admin: 05/31/19 07:34 Dose: 10 mls/hr Lactated Ringer's (Lactated Ringers Solution) 1,000 mls @ 125 mls/hr IV ASDIR [facility]NA Last Admin: 05/31/19 04:55 Dose: 125 mls/hr Piperacillin Sod/Tazobactam (Sod 3.375 gm/ Dextrose) 50 mls @ 100 mls/hr IVPB Q8H-IV [facility]; Protocol Last Admin: 05/31/19 10:54 Dose: 100 mls/hr Ondansetron HCl (Zofran Injection) 4 mg IVPUSH Q8H PRN PRN Reason: NAUSEA - Objective Vital Signs: Vital Signs Temperature 98.5 F 05/31/19 13:15 Pulse Rate 79 05/31/19 13:15 Respiratory Rate 18 05/31/19 13:15 Blood Pressure 112/76 05/31/19 13:15 O2 Sat by Pulse Oximetry (%) 97 05/31/19 12:30 Vital Signs Period Temp Pulse Resp BP Sys/Thomas Pulse Ox Last 24 Hr 98.4 F-98.7 F 71-84 16-20 124-142/68-84 90-97 Intake & Output 06/01/19 06/01/19 06/01/19 07:59 15:59 23:59 Intake Total 1770 1200 Output Total 1140 215 650 Balance 630 985 -650 Intake: IV 1620 1000 Lactated Ringers Solution 1500 1000 1,000 ml @ 125 mls/hr IV ASDIR GIOVANA Rx#: [id number] iv 120 IVPB 150 200 Oral 0 Output: Gastric Drainage 200 50 Drainage 140 165 Right Abdomen 140 165 Urine 800 650 Phelan 800 Void 650 Other: Voiding Method Indwelling Catheter Urinal # Unmeasured Voids Phelna 0 Bowel Movement No Constitutional: Yes: Well Nourished, No Distress, Calm Eyes: Yes: Conjunctiva Clear, EOM Intact HENT: Yes: Atraumatic, Normocephalic Neck: Yes: Supple, Trachea Midline Cardiovascular: Yes: Regular Rate and Rhythm, S1, S2 Respiratory: Yes: Regular, CTA Bilaterally Gastrointestinal: Yes: Soft, Hypoactive Bowel Sounds. No: Distention ...Rectal Exam: Yes: Deferred Genitourinary: No: CVA Tenderness - Left, CVA Tenderness - Right Breast(s): No: Mass, Nipple Inversion Musculoskeletal: No: Joint Stiffness, Joint Swelling Extremities: No: Cold, Cool Edema: No Peripheral Pulses WNL: Yes Peripheral Pulses: Left Radial: 2+, Right Radial: 2+, Left Doralis Pedis: 2+, Right Dorsalis Pedis: 2+, Left Femoral: 2+, Right Femoral: 2+ Integumentary: No: Jaundice, Rash, Skin Tear Wound/Incision: Yes: Clean/Dry, Well Approximated, [place] Intact, Dressing Dry and Intact Neurological: Yes: Alert, Oriented Psychiatric: Yes: Alert, Oriented Labs: CBC, BMP 05/31/19 08:00 05/31/19 08:00 INR, PTT INR 0.94 (0.83-1.09) 05/30/19 11:56 Problem List - Problems (1) Perforated abdominal viscus Assessment/Plan: 48yo male HTN POD#1 s/p Exp Lap and Singh Patch of gastic ulcer Strict NPO and IVF hydration NGT to LIWS IV antibiotics per ID Medical management per hospitalist trend labs and correct electrolytes Plan for gastric leak test Monday 06/04 Code(s): [id number] - (2) HTN (hypertension) Code(s): I10 - ESSENTIAL (PRIMARY) HYPERTENSION Qualifiers: Hypertension type: essential hypertension Qualified Code(s): I10 - Essential (primary) hypertension (3) Abdominal pain in male Code(s): R10.9 - UNSPECIFIED ABDOMINAL PAIN (4) NSAID induced gastritis Code(s): K29.60 - OTHER GASTRITIS WITHOUT BLEEDING; T39.395A - ADVERSE EFFECT OF NONSTEROIDAL ANTI-INFLAMMATORY DRUGS, INIT (5) NSAID-associated gastropathy Code(s): K31.9 - DISEASE OF STOMACH AND DUODENUM, UNSPECIFIED; T39.395A - ADVERSE EFFECT OF NONSTEROIDAL ANTI-INFLAMMATORY DRUGS, INIT
[2019-06-01] MEDS ORDERED: DEXTROSE 5%-WATER - 50 ML IVPB ONE ×3 (00:27→16:53)
[2019-06-01] MEDS ORDERED: PIPERACILLIN/TAZOBACTAM 3.375 GM VIAL IVPB ONE ×3 (00:27→16:53)
[2019-06-01] MEDS: PIPERACILLIN/TAZOB 3.375 GM 3.375 GM in DEXTROSE 5%-WATER - 50 ML IVPB SCH ×3 (02:55→18:04)
[2019-06-01] MEDS: HEPARIN NA (PORCINE) 5,000 UNITS/ML 1ML VIAL SQ SCH ×3 (02:56→16:59)
[2019-06-01] MEDS: PANTOPRAZOLE SODIUM 80 MG in SODIUM CHLORIDE 100 ML IVPB SCH ×2 (03:40→15:05)
--- NOTE | 2019-06-01 08:22 | PN ---
Progress Note (short form) - Note Progress Note: Anesthesia/Pain Post op Pt seen and examined S:alert and awake comfortable O: Vital Signs Temperature 98.7 F 06/01/19 06:00 Pulse Rate 73 06/01/19 06:44 Respiratory Rate 18 06/01/19 06:44 Blood Pressure 138/84 06/01/19 06:44 O2 Sat by Pulse Oximetry (%) 97 06/01/19 06:44 CBC, BMP 05/31/19 08:00 05/31/19 08:00 A/P: Current Active Problems Abdominal pain in male (Acute) HTN (hypertension) (Acute) NSAID induced gastritis (Acute) NSAID-associated gastropathy (Acute) Perforated abdominal viscus (Acute) Perforated gastric ulcer (Acute) Pyloric ulcer (Acute) s/p ex lap Doing well post op Pain well controlled Continue current care Alfonso Weinberg MD
[2019-06-01] MEDS: FLUCONAZOLE 100 MG/NS 50 ML IVPB SCH (11:26)
--- NOTE | 2019-06-01 15:10 | PN ---
Progress Note, Physician Chief Complaint: abdominal pain History of Present Illness: 48yo male PMH developmental delay, HTN, painful LE varicose veins, s/p left foot surgery and back surgery presented to ED this afternoon report acute onset upper abdominal pain gradually worsening since 8AM. stable since surgery - Current Medication List Current Medications: Active Medications Acetaminophen (Ofirmev Injection -) 1,000 mg IVPB Q6H PRN PRN Reason: FEVER Last Admin: 05/30/19 20:20 Dose: 1,000 mg Heparin Sodium (Porcine) (Heparin -) 5,000 unit SQ Q8H-IV [facility] Last Admin: 06/01/19 10:43 Dose: 5,000 unit Hydromorphone HCl (Hydromorphone 10 Mg/50 Ml-Ns) 10 mg TRACK LAYING SUPERVISOR TRACK LAYING SUPERVISOR [facility]NA; Protocol Stop: 06/06/19 17:14 Last Admin: 05/30/19 20:30 Dose: 10 mg Metronidazole (Flagyl 500mg Premixed Ivpb -) 500 mg in 100 mls @ 100 mls/hr IVPB Q8H-IV [facility] Last Admin: 06/01/19 10:43 Dose: 100 mls/hr Pantoprazole Sodium 80 mg/ (Sodium Chloride) 100 mls @ 10 mls/hr IVPB Q10H [facility] Last Admin: 06/01/19 15:05 Dose: 10 mls/hr Lactated Ringer's (Lactated Ringers Solution) 1,000 mls @ 125 mls/hr IV ASDIR [facility] Last Admin: 05/31/19 23:50 Dose: 125 mls/hr Piperacillin Sod/Tazobactam (Sod 3.375 gm/ Dextrose) 50 mls @ 100 mls/hr IVPB Q8H-IV [facility]; Protocol Last Admin: 06/01/19 09:44 Dose: 100 mls/hr Fluconazole (Diflucan 100 Mg/Ns Premixed Ivpb -) 50 mls @ 50 mls/hr IVPB DAILY [facility] Last Admin: 06/01/19 11:26 Dose: 50 mls/hr Ondansetron HCl (Zofran Injection) 4 mg IVPUSH Q8H PRN PRN Reason: NAUSEA - Objective Vital Signs: Vital Signs Temperature 98.4 F 06/01/19 09:15 Pulse Rate 71 06/01/19 09:15 Respiratory Rate 18 06/01/19 09:15 Blood Pressure 142/77 06/01/19 09:15 O2 Sat by Pulse Oximetry (%) 97 06/01/19 09:00 Vital Signs Period Temp Pulse Resp BP Sys/Thomas Pulse Ox Last 24 Hr 98.4 F-98.7 F 71-84 16-20 124-142/68-84 90-97 Intake & Output 06/01/19 06/01/19 06/01/19 07:59 15:59 23:59 Intake Total 1770 1200 Output Total 1140 215 650 Balance 630 985 -650 Intake: IV 1620 1000 Lactated Ringers Solution 1500 1000 1,000 ml @ 125 mls/hr IV ASDIR [facility]OVANA Rx#: [id number] iv 120 IVPB 150 200 Oral 0 Output: Gastric Drainage 200 50 Drainage 140 165 Right Abdomen 140 165 Urine 800 650 Phelan 800 Void 650 Other: Voiding Method Indwelling Catheter Urinal # Unmeasured Voids Phelan 0 Bowel Movement No Constitutional: Yes: Well Nourished, No Distress, Calm Eyes: Yes: Conjunctiva Clear, EOM Intact HENT: Yes: Atraumatic, Normocephalic Neck: Yes: Supple, Trachea Midline Cardiovascular: Yes: Regular Rate and Rhythm, S1, S2 Respiratory: Yes: Regular, CTA Bilaterally Gastrointestinal: Yes: Normal Bowel Sounds, Soft, Tenderness (incisonal). No: Distention ...Rectal Exam: Yes: Deferred. No: Guaiac Negative, Induration Genitourinary: No: CVA Tenderness - Left, CVA Tenderness - Right Breast(s): No: Mass, Skin Changes Musculoskeletal: No: Back Pain, Joint Swelling Extremities: No: Cool, Cyanosis Peripheral Pulses WNL: Yes Integumentary: No: Incision, Jaundice Wound/Incision: Yes: Clean/Dry, Well Approximated, [place] Intact, Open to air Neurological: Yes: Alert, Oriented Psychiatric: Yes: Alert, Oriented Labs: CBC, BMP 05/31/19 08:00 05/31/19 08:00 INR, PTT INR 0.94 (0.83-1.09) 05/30/19 11:56 Problem List - Problems (1) Perforated abdominal viscus Assessment/Plan: 48yo male HTN POD#2 s/p Exp Lap and Singh Patch of gastic ulcer Strict NPO and IVF hydration NGT to LIWS IV antibiotics per ID Medical management per hospitalist trend labs and correct electrolytes Plan for gastric leak test Monday 06/04 Code(s): [id number] - (2) HTN (hypertension) Code(s): I10 - ESSENTIAL (PRIMARY) HYPERTENSION Qualifiers: Hypertension type: essential hypertension Qualified Code(s): I10 - Essential (primary) hypertension (3) Abdominal pain in male Code(s): R10.9 - UNSPECIFIED ABDOMINAL PAIN (4) NSAID induced gastritis Code(s): K29.60 - OTHER GASTRITIS WITHOUT BLEEDING; T39.395A - ADVERSE EFFECT OF NONSTEROIDAL ANTI-INFLAMMATORY DRUGS, INIT (5) NSAID-associated gastropathy Code(s): K31.9 - DISEASE OF STOMACH AND DUODENUM, UNSPECIFIED; T39.395A - ADVERSE EFFECT OF NONSTEROIDAL ANTI-INFLAMMATORY DRUGS, INIT
--- NOTE | 2019-06-01 16:01 | PN ---
Progress Note (short form) - Note Progress Note: H. Pylori serologies negative D/C PPI drip BID IV PPI then to oral when OK with surgery Problem List - Problems (1) Perforated gastric ulcer Code(s): K25.5 - CHRONIC OR UNSPECIFIED GASTRIC ULCER WITH PERFORATION
--- NOTE | 2019-06-01 16:07 | PN ---
Progress Note, Physician History of Present Illness: Pt seen and examined. Events noted. Ex-lap/Singh patch POD #2. Pt states he feels well. Denies abd pain. NGT remains in place, no flatus/BM yet. - Current Medication List Current Medications: Active Medications Acetaminophen (Ofirmev Injection -) 1,000 mg IVPB Q6H PRN PRN Reason: FEVER Last Admin: 05/30/19 20:20 Dose: 1,000 mg Heparin Sodium (Porcine) (Heparin -) 5,000 unit SQ Q8H-IV [facility] Last Admin: 06/01/19 10:43 Dose: 5,000 unit Hydromorphone HCl (Hydromorphone 10 Mg/50 Ml-Ns) 10 mg MACHINE SAND MIXER MACHINE SAND MIXER [facility]NA; Protocol Stop: 06/06/19 17:14 Last Admin: 05/30/19 20:30 Dose: 10 mg Metronidazole (Flagyl 500mg Premixed Ivpb -) 500 mg in 100 mls @ 100 mls/hr IVPB Q8H-IV [facility] Last Admin: 06/01/19 10:43 Dose: 100 mls/hr Pantoprazole Sodium 80 mg/ (Sodium Chloride) 100 mls @ 10 mls/hr IVPB Q10H [facility] Stop: 06/02/19 06:00 Last Admin: 06/01/19 15:05 Dose: 10 mls/hr Lactated Ringer's (Lactated Ringers Solution) 1,000 mls @ 125 mls/hr IV ASDIR [facility]NA Last Admin: 05/31/19 23:50 Dose: 125 mls/hr Piperacillin Sod/Tazobactam (Sod 3.375 gm/ Dextrose) 50 mls @ 100 mls/hr IVPB Q8H-IV [facility]; Protocol Last Admin: 06/01/19 09:44 Dose: 100 mls/hr Fluconazole (Diflucan 100 Mg/Ns Premixed Ivpb -) 50 mls @ 50 mls/hr IVPB DAILY [facility] Last Admin: 06/01/19 11:26 Dose: 50 mls/hr Ondansetron HCl (Zofran Injection) 4 mg IVPUSH Q8H PRN PRN Reason: NAUSEA - Objective Vital Signs: Vital Signs Temperature 98.1 F 06/01/19 15:18 Pulse Rate 63 06/01/19 15:18 Respiratory Rate 18 06/01/19 09:15 Blood Pressure 145/88 06/01/19 15:18 O2 Sat by Pulse Oximetry (%) 97 06/01/19 09:00 Constitutional: Yes: No Distress, Calm Cardiovascular: Yes: Regular Rate and Rhythm Respiratory: Yes: Regular Gastrointestinal: Yes: Soft Genitourinary: Yes: WNL Musculoskeletal: Yes: WNL Extremities: Yes: WNL Edema: No Integumentary: Yes: WNL Wound/Incision: Yes: Other (Drain with serosanguinous fluid, dressing intact) Neurological: Yes: Alert Labs: CBC, BMP 05/31/19 08:00 05/31/19 08:00 INR, PTT INR 0.94 (0.83-1.09) 05/30/19 11:56 Microbiology 05/30/19 14:56 Blood - Peripheral Venous Blood Culture - Preliminary NO GROWTH OBTAINED AFTER 48 HOURS, INCUBATION TO CONTINUE FOR 3 DAYS. 05/30/19 15:06 Blood - Peripheral Venous Blood Culture - Preliminary NO GROWTH OBTAINED AFTER 48 HOURS, INCUBATION TO CONTINUE FOR 3 DAYS. 05/30/19 18:50 Peritoneal Cavity Swab Gram Stain - Final 05/30/19 18:50 Peritoneal Cavity Swab Wound Culture - Preliminary Yeast Like Organism - ....Imaging Cat Scan: Report Reviewed Ultrasound: Report Reviewed Problem List - Problems (1) HTN (hypertension) Code(s): I10 - ESSENTIAL (PRIMARY) HYPERTENSION Qualifiers: Hypertension type: essential hypertension Qualified Code(s): I10 - Essential (primary) hypertension (2) NSAID induced gastritis Code(s): K29.60 - OTHER GASTRITIS WITHOUT BLEEDING; T39.395A - ADVERSE EFFECT OF NONSTEROIDAL ANTI-INFLAMMATORY DRUGS, INIT (3) Perforated abdominal viscus Code(s): [id number] - (4) Perforated gastric ulcer Code(s): K25.5 - CHRONIC OR UNSPECIFIED GASTRIC ULCER WITH PERFORATION Assessment/Plan Perforated abd viscus/nsaid-induced gastric ulcer s/p Ex-lap/Singh patch POD#2 -- continue antibiotics empirically for now -- monitor cbc/bmp, vitals -- surgery following
[2019-06-01] MEDS ORDERED: D5-1/2NS+20 MEQ KCL - 20 MEQ/1,000 ML INFUS.BAG IV SCH (18:00)
--- NOTE | 2019-06-01 19:06 | PN ---
Progress Note, Physician Chief Complaint: Abdominal pain abdominal perforation History of Present Illness: NAD OOB POD#2 s/p Exp Lap and Singh Patch of gastic ulcer Seen by Surgery, GI and ID PPI drip discontinue, switched to IV BID NPO until monday for small bowel series NGT at low wall suction H pylori negative - Current Medication List Current Medications: Active Medications Acetaminophen (Ofirmev Injection -) 1,000 mg IVPB Q6H PRN PRN Reason: FEVER Last Admin: 05/30/19 20:20 Dose: 1,000 mg Heparin Sodium (Porcine) (Heparin -) 5,000 unit SQ Q8H-IV [facility]NA Last Admin: 06/01/19 16:59 Dose: 5,000 unit Hydromorphone HCl (Hydromorphone 10 Mg/50 Ml-Ns) 10 mg BUSINESS SUPPORT BUSINESS SUPPORT [facility]; Protocol Stop: 06/06/19 17:14 Last Admin: 05/30/19 20:30 Dose: 10 mg Metronidazole (Flagyl 500mg Premixed Ivpb -) 500 mg in 100 mls @ 100 mls/hr IVPB Q8H-IV [facility] Last Admin: 06/01/19 17:00 Dose: 100 mls/hr Piperacillin Sod/Tazobactam (Sod 3.375 gm/ Dextrose) 50 mls @ 100 mls/hr IVPB Q8H-IV [facility]; Protocol Last Admin: 06/01/19 18:04 Dose: 100 mls/hr Fluconazole (Diflucan 100 Mg/Ns Premixed Ivpb -) 50 mls @ 50 mls/hr IVPB DAILY [facility] Last Admin: 06/01/19 11:26 Dose: 50 mls/hr Potassium Chloride/Dextrose/Sod Cl (D5-1/2ns+20 Meq Kcl -) 20 meq in 1,000 mls @ 125 mls/hr IV ASDIR [facility]NA Last Admin: 06/01/19 18:04 Dose: 125 mls/hr Ondansetron HCl (Zofran Injection) 4 mg IVPUSH Q8H PRN PRN Reason: NAUSEA Pantoprazole Sodium (Protonix Iv) 40 mg IVPB BID GIOVANA - Objective Vital Signs: Vital Signs Temperature 98.1 F 06/01/19 15:18 Pulse Rate 63 06/01/19 15:18 Respiratory Rate 18 06/01/19 15:03 Blood Pressure 145/88 06/01/19 15:18 O2 Sat by Pulse Oximetry (%) 96 06/01/19 15:03 Constitutional: Yes: Well Nourished, No Distress, Calm Cardiovascular: Yes: Regular Rate and Rhythm Respiratory: Yes: Regular Gastrointestinal: Yes: WNL Musculoskeletal: Yes: WNL Extremities: Yes: WNL Edema: No Peripheral Pulses WNL: Yes Neurological: Yes: Alert, Oriented Psychiatric: Yes: Alert, Oriented Labs: CBC, BMP 05/31/19 08:00 05/31/19 08:00 INR, PTT INR 0.94 (0.83-1.09) 05/30/19 11:56 Problem List - Problems (1) NSAID-associated gastropathy Assessment/Plan: -Avoid NSAID's -PPI IV BID -switch to po upon discharge -seen by GI Code(s): K31.9 - DISEASE OF STOMACH AND DUODENUM, UNSPECIFIED; T39.395A - ADVERSE EFFECT OF NONSTEROIDAL ANTI-INFLAMMATORY DRUGS, INIT (2) Perforated abdominal viscus Assessment/Plan: -Surgery on board -NGT to LWIS -NPO until small bowel series on Monday -IVF -ID on board -Started on IV fluconazole, flagyl and zosyn Code(s): [id number] - (3) Lactic acidosis Assessment/Plan: -recheck labs in AM -Continue IVF for now Code(s): E87.2 - ACIDOSIS Assessment/Plan see problem list
[2019-06-02] MEDS ORDERED: PIPERACILLIN/TAZOBACTAM 3.375 GM VIAL IVPB ONE ×3 (01:01→15:22)
[2019-06-02] MEDS ORDERED: DEXTROSE 5%-WATER - 50 ML IVPB ONE ×3 (01:01→15:22)
[2019-06-02] MEDS: PIPERACILLIN/TAZOB 3.375 GM 3.375 GM in DEXTROSE 5%-WATER - 50 ML IVPB SCH ×3 (01:17→17:33)
[2019-06-02] MEDS: HEPARIN NA (PORCINE) 5,000 UNITS/ML 1ML VIAL SQ SCH ×3 (01:27→17:08)
[2019-06-02 08:24] LABS: BASO % 0.4 % (0-2.0); EOS % 1.1 % (0-4.5); HEMATOCRIT 38.6 % (35.4-49); HEMOGLOBIN 13.3 GM/dL (11.7-16.9); LYMPH % 16.7 % (8-40); MCH 30.7 pg (25.7-33.7); MCHC 34.5 g/dl (32.0-35.9); MEAN CELL VOLUME 89.1 fl (80-96); MEAN PLT VOLUME 9.5 fl (7.5-11.1); MONO % 6.7 % (3.8-10.2); NEUT % 75.1 % (42.8-82.8); PLATELET COUNT 187 K/MM3 (134-434); RBC 4.33 M/mm3 (4.00-5.60); WHITE BLOOD COUNT 7.5 K/mm3 (4.0-10.0)
[2019-06-02 08:57] LABS: ALBUMIN 2.7 g/dl (3.4-5.0); BILIRUBIN,TOTAL 0.6 mg/dL (0.2-1); BLOOD UREA NITROGEN 17.3 mg/dL (7-18); CALCIUM 8.8 mg/dL (8.5-10.1); POTASSIUM 3.8 mmol/L (3.5-5.1); TOT PROT 5.7 g/dl (6.4-8.2)
[2019-06-02] MEDS: PANTOPRAZOLE SODIUM 40 MG VIAL IVPB SCH ×2 (09:44→21:16)
[2019-06-02] MEDS: FLUCONAZOLE 100 MG/NS 50 ML IVPB SCH (12:12)
--- NOTE | 2019-06-02 12:19 | PN ---
Progress Note, Physician Chief Complaint: abdominal pain History of Present Illness: 48yo male PMH developmental delay, HTN, painful LE varicose veins, s/p left foot surgery and back surgery presented to ED this afternoon report acute onset upper abdominal pain gradually worsening since 8AM. stable since surgery - Current Medication List Current Medications: Active Medications Acetaminophen (Ofirmev Injection -) 1,000 mg IVPB Q6H PRN PRN Reason: FEVER Last Admin: 05/30/19 20:20 Dose: 1,000 mg Heparin Sodium (Porcine) (Heparin -) 5,000 unit SQ Q8H-IV [facility]NA Last Admin: 06/02/19 09:08 Dose: 5,000 unit Hydromorphone HCl (Hydromorphone 10 Mg/50 Ml-Ns) 10 mg OPERATIONAL REVIEW SERGEANT OPERATIONAL REVIEW SERGEANT [facility]NA; Protocol Stop: 06/06/19 17:14 Last Admin: 05/30/19 20:30 Dose: 10 mg Metronidazole (Flagyl 500mg Premixed Ivpb -) 500 mg in 100 mls @ 100 mls/hr IVPB Q8H-IV [facility] Last Admin: 06/02/19 09:07 Dose: 100 mls/hr Piperacillin Sod/Tazobactam (Sod 3.375 gm/ Dextrose) 50 mls @ 100 mls/hr IVPB Q8H-IV [facility]; Protocol Last Admin: 06/02/19 10:23 Dose: 100 mls/hr Fluconazole (Diflucan 100 Mg/Ns Premixed Ivpb -) 50 mls @ 50 mls/hr IVPB DAILY [facility] Last Admin: 06/02/19 12:12 Dose: 50 mls/hr Potassium Chloride/Dextrose/Sod Cl (D5-1/2ns+20 Meq Kcl -) 20 meq in 1,000 mls @ 125 mls/hr IV ASDIR [facility]NA Last Admin: 06/01/19 18:04 Dose: 125 mls/hr Ondansetron HCl (Zofran Injection) 4 mg IVPUSH Q8H PRN PRN Reason: NAUSEA Pantoprazole Sodium (Protonix Iv) 40 mg IVPB BID [facility]NA Last Admin: 06/02/19 09:44 Dose: 40 mg - Objective Vital Signs: Vital Signs Temperature 97.9 F 06/02/19 09:00 Pulse Rate 68 06/02/19 09:00 Respiratory Rate 18 06/02/19 09:00 Blood Pressure 135/80 06/02/19 09:00 O2 Sat by Pulse Oximetry (%) 94 L 06/02/19 09:00 Constitutional: Yes: Well Nourished, No Distress, Calm Eyes: Yes: Conjunctiva Clear, EOM Intact HENT: Yes: Atraumatic, Normocephalic Neck: Yes: Supple, Trachea Midline Cardiovascular: Yes: Regular Rate and Rhythm, S1, S2 Respiratory: Yes: Regular, CTA Bilaterally Gastrointestinal: Yes: Normal Bowel Sounds, Soft, Tenderness ...Rectal Exam: Yes: Deferred Genitourinary: No: CVA Tenderness - Left, CVA Tenderness - Right Breast(s): No: Mass, Skin Changes Musculoskeletal: No: Joint Stiffness, Joint Swelling Extremities: No: Cool, Cyanosis Edema: No Peripheral Pulses WNL: Yes Peripheral Pulses: Left Radial: 2+, Right Radial: 2+, Left Doralis Pedis: 2+, Right Dorsalis Pedis: 2+, Left Femoral: 2+, Right Femoral: 2+ Integumentary: Yes: Incision. No: Jaundice, Rash Wound/Incision: Yes: Clean/Dry, Well Approximated, [place] Intact, Open to air, Draining (LUQ CHRIST drain) Neurological: Yes: Alert, Oriented Psychiatric: Yes: Alert, Oriented Labs: CBC, BMP 06/02/19 07:45 06/02/19 07:45 INR, PTT INR 0.94 (0.83-1.09) 05/30/19 11:56 Problem List - Problems (1) Perforated abdominal viscus Assessment/Plan: 48yo male HTN POD#4 s/p Exp Lap and Singh Patch of gastic ulcer clears after leak test is negative IV antibiotics per ID Medical management per hospitalist trend labs and correct electrolytes Plan for gastric leak test Sunday 06/03 Code(s): [id number] - (2) HTN (hypertension) Code(s): I10 - ESSENTIAL (PRIMARY) HYPERTENSION Qualifiers: Hypertension type: essential hypertension Qualified Code(s): I10 - Essential (primary) hypertension (3) Abdominal pain in male Code(s): R10.9 - UNSPECIFIED ABDOMINAL PAIN (4) NSAID induced gastritis Code(s): K29.60 - OTHER GASTRITIS WITHOUT BLEEDING; T39.395A - ADVERSE EFFECT OF NONSTEROIDAL ANTI-INFLAMMATORY DRUGS, INIT (5) NSAID-associated gastropathy Code(s): K31.9 - DISEASE OF STOMACH AND DUODENUM, UNSPECIFIED; T39.395A - ADVERSE EFFECT OF NONSTEROIDAL ANTI-INFLAMMATORY DRUGS, INIT
--- NOTE | 2019-06-02 13:39 | PN ---
Progress Note, Physician Chief Complaint: Abdominal pain abdominal perforation History of Present Illness: NAD, in bed, fmily at bedside POD#3 s/p Exp Lap and Singh Patch of gastric ulcer denies any pain/N/V Seen by Surgery, GI and ID PPI drip discontinue, switched to IV BID NPO until monday for small bowel series NGT at low wall suction H pylori negative - Current Medication List Current Medications: Active Medications Acetaminophen (Ofirmev Injection -) 1,000 mg IVPB Q6H PRN PRN Reason: FEVER Last Admin: 05/30/19 20:20 Dose: 1,000 mg Heparin Sodium (Porcine) (Heparin -) 5,000 unit SQ Q8H-IV GIOVANA Last Admin: 06/02/19 09:08 Dose: 5,000 unit Hydromorphone HCl (Hydromorphone 10 Mg/50 Ml-Ns) 10 mg CORRECTIONS NURSE CORRECTIONS NURSE GIOVANA; Protocol Stop: 06/06/19 17:14 Last Admin: 05/30/19 20:30 Dose: 10 mg Metronidazole (Flagyl 500mg Premixed Ivpb -) 500 mg in 100 mls @ 100 mls/hr IVPB Q8H-IV [facility]NA Last Admin: 06/02/19 09:07 Dose: 100 mls/hr Piperacillin Sod/Tazobactam (Sod 3.375 gm/ Dextrose) 50 mls @ 100 mls/hr IVPB Q8H-IV [facility]; Protocol Last Admin: 06/02/19 10:23 Dose: 100 mls/hr Fluconazole (Diflucan 100 Mg/Ns Premixed Ivpb -) 50 mls @ 50 mls/hr IVPB DAILY [facility]NA Last Admin: 06/02/19 12:12 Dose: 50 mls/hr Potassium Chloride/Dextrose/Sod Cl (D5-1/2ns+20 Meq Kcl -) 20 meq in 1,000 mls @ 125 mls/hr IV ASDIR GIOVANA Last Admin: 06/01/19 18:04 Dose: 125 mls/hr Nicotine (Nicoderm Patch -) 14 mg TD DAILY [facility] Ondansetron HCl (Zofran Injection) 4 mg IVPUSH Q8H PRN PRN Reason: NAUSEA Pantoprazole Sodium (Protonix Iv) 40 mg IVPB BID GIOVANA Last Admin: 06/02/19 09:44 Dose: 40 mg - Objective Vital Signs: Vital Signs Temperature 97.9 F 06/02/19 09:00 Pulse Rate 68 06/02/19 09:00 Respiratory Rate 18 06/02/19 09:00 Blood Pressure 135/80 06/02/19 09:00 O2 Sat by Pulse Oximetry (%) 94 L 06/02/19 09:00 Constitutional: Yes: Well Nourished, No Distress, Calm Cardiovascular: Yes: Regular Rate and Rhythm Respiratory: Yes: Regular Gastrointestinal: Yes: Normal Bowel Sounds, Soft, Tenderness (incisonal), Other (Mid abdomen [id number]) Genitourinary: Yes: WNL Musculoskeletal: Yes: WNL Extremities: Yes: WNL Edema: No Peripheral Pulses WNL: Yes Neurological: Yes: Alert, Oriented Psychiatric: Yes: Alert, Oriented Labs: CBC, BMP 06/02/19 07:45 06/02/19 07:45 INR, PTT INR 0.94 (0.83-1.09) 05/30/19 11:56 Problem List - Problems (1) NSAID-associated gastropathy Assessment/Plan: -Avoid NSAID's -PPI IV BID -switch to po upon discharge -seen by GI Code(s): K31.9 - DISEASE OF STOMACH AND DUODENUM, UNSPECIFIED; T39.395A - ADVERSE EFFECT OF NONSTEROIDAL ANTI-INFLAMMATORY DRUGS, INIT (2) Perforated abdominal viscus Assessment/Plan: -Surgery on board -NGT to LWIS -NPO until small bowel series on Monday -IVF -ID on board -Started on IV fluconazole, flagyl and zosyn Code(s): [id number] - (3) Lactic acidosis Assessment/Plan: -resolved -Continue IVF for now Code(s): E87.2 - ACIDOSIS Assessment/Plan see problem list
[2019-06-02] MEDS: NICOTINE 14 MG/24 HOURS TOPICAL PATCH TD SCH (15:25)
--- NOTE | 2019-06-02 15:48 | PN ---
Progress Note, Physician History of Present Illness: Pt states he feels well. Denies abd pain. NGT in place. Ambulating. Reports BM today. No specific complaints. - Current Medication List Current Medications: Active Medications Acetaminophen (Ofirmev Injection -) 1,000 mg IVPB Q6H PRN PRN Reason: FEVER Last Admin: 05/30/19 20:20 Dose: 1,000 mg Heparin Sodium (Porcine) (Heparin -) 5,000 unit SQ Q8H-IV [facility]OVANA Last Admin: 06/02/19 09:08 Dose: 5,000 unit Hydromorphone HCl (Hydromorphone 10 Mg/50 Ml-Ns) 10 mg STOCK CRANE OPERATOR STOCK CRANE OPERATOR GIOVANA; Protocol Stop: 06/06/19 17:14 Last Admin: 05/30/19 20:30 Dose: 10 mg Metronidazole (Flagyl 500mg Premixed Ivpb -) 500 mg in 100 mls @ 100 mls/hr IVPB Q8H-IV GIOVANA Last Admin: 06/02/19 09:07 Dose: 100 mls/hr Piperacillin Sod/Tazobactam (Sod 3.375 gm/ Dextrose) 50 mls @ 100 mls/hr IVPB Q8H-IV [facility]OVANA; Protocol Last Admin: 06/02/19 10:23 Dose: 100 mls/hr Fluconazole (Diflucan 100 Mg/Ns Premixed Ivpb -) 50 mls @ 50 mls/hr IVPB DAILY [facility]NA Last Admin: 06/02/19 12:12 Dose: 50 mls/hr Potassium Chloride/Dextrose/Sod Cl (D5-1/2ns+20 Meq Kcl -) 20 meq in 1,000 mls @ 100 mls/hr IV ASDIR [facility] Nicotine (Nicoderm Patch -) 14 mg TD DAILY GIOVANA Last Admin: 06/02/19 15:25 Dose: 14 mg Ondansetron HCl (Zofran Injection) 4 mg IVPUSH Q8H PRN PRN Reason: NAUSEA Pantoprazole Sodium (Protonix Iv) 40 mg IVPB BID [facility] Last Admin: 06/02/19 09:44 Dose: 40 mg - Objective Vital Signs: Vital Signs Temperature 97.9 F 06/02/19 09:00 Pulse Rate 68 06/02/19 09:00 Respiratory Rate 18 06/02/19 09:00 Blood Pressure 135/80 06/02/19 09:00 O2 Sat by Pulse Oximetry (%) 94 L 06/02/19 09:00 Constitutional: Yes: No Distress, Calm Cardiovascular: Yes: Regular Rate and Rhythm Respiratory: Yes: Regular Gastrointestinal: Yes: Normal Bowel Sounds, Soft, Other (+NGT) Genitourinary: Yes: WNL Musculoskeletal: Yes: WNL Extremities: Yes: WNL Integumentary: Yes: WNL Neurological: Yes: Alert, Oriented Labs: CBC, BMP 06/02/19 07:45 06/02/19 07:45 INR, PTT INR 0.94 (0.83-1.09) 05/30/19 11:56 Microbiology 05/30/19 14:56 Blood - Peripheral Venous Blood Culture - Preliminary NO GROWTH OBTAINED AFTER 72 HOURS, INCUBATION TO CONTINUE FOR 2 DAYS. 05/30/19 15:06 Blood - Peripheral Venous Blood Culture - Preliminary NO GROWTH OBTAINED AFTER 72 HOURS, INCUBATION TO CONTINUE FOR 2 DAYS. 05/30/19 18:50 Peritoneal Cavity Swab Gram Stain - Final 05/30/19 18:50 Peritoneal Cavity Swab Wound Culture - Final Yeast Like Organism Alpha Hemolytic Streptococcus Problem List - Problems (1) HTN (hypertension) Code(s): I10 - ESSENTIAL (PRIMARY) HYPERTENSION Qualifiers: Hypertension type: essential hypertension Qualified Code(s): I10 - Essential (primary) hypertension (2) NSAID induced gastritis Code(s): K29.60 - OTHER GASTRITIS WITHOUT BLEEDING; T39.395A - ADVERSE EFFECT OF NONSTEROIDAL ANTI-INFLAMMATORY DRUGS, INIT (3) Perforated abdominal viscus Code(s): [id number] - (4) Perforated gastric ulcer Code(s): K25.5 - CHRONIC OR UNSPECIFIED GASTRIC ULCER WITH PERFORATION Assessment/Plan Perforated abd viscus/nsaid-induced gastric ulcer s/p Ex-lap/Singh patch POD#3 -- pt stable, afebrile, leukocytosis resolved, lactic acid level normal now -- continue IV antibiotics -- small bowel series planned for Monday -- surgery following continue monitor
[2019-06-02] MEDS: D5-1/2NS+20 MEQ KCL - 20 MEQ/1,000 ML INFUS.BAG IV SCH (17:09)
--- NOTE | 2019-06-02 18:19 | OP ---
DATE OF OPERATION: 05/30/2019 PREOPERATIVE DIAGNOSIS: Perforated viscus, and free air. POSTOPERATIVE DIAGNOSIS: Anterior prepyloric perforated ulcer. PROCEDURE: Exploratory laparotomy, [place] Singh omental patch of the prepyloric gastric ulcer perforation. ATTENDING PHYSICIAN: Luis Antonio Sepulveda MD PRE PAROLE COUNSELING AIDE: Deep Cruz MD ANESTHESIOLOGIST: DENISHA Bishop ANESTHESIA TYPE: General. ESTIMATED BLOOD LOSS: 20 mL. INTRAVENOUS FLUID ADMINISTERED: 1500 mL. DRAINS PLACED: Phelan catheter, NG tube saline sump, size 16-Lithuanian and a right upper quadrant CHRIST size 10 flat to bulb suction. SPECIMEN: None. PATHOLOGY: Culture from the abdomen is sent. INDICATION: The patient is a 48-year-old male with hypertension, developmentally delayed, with undiagnosed gastritis and a perforated gastric ulcer on CT scan with free air. He was explained the risks, benefits and alternatives to the surgical procedure involved, signed informed consent, was taken for the procedure. DESCRIPTION OF PROCEDURE: The patient was brought to the operating room. He was placed in the supine position on the operating table with lower extremity SCDs. He was given intravenous Diflucan, Levaquin and Flagyl into the antibiotics in the emergency department. His anterior abdominal wall was shaved, prepped and draped in standard surgical fashion to the surgical field. A formal timeout was completed, identifying the operative site and procedure. With all parties in agreement, we began first with an upper midline laparotomy incision with a curvilinear extension around the umbilicus. This was opened with a 10-blade scalpel, deepened and widened through subcutaneous tissue. Care was taken to dissect down through the midline fascia to the midline rectus fascia which was elevated and then entered with Bovie cautery. Once inside the viscera of the abdomen was protected with a finger and the remainder of the fascia was opened to the inferior and superior aspect of the incision. The incision was then partially eviscerated leading to cultures being immediately sent from the right upper quadrant that appeared to have a murky succus. We attempted to evaluate the stomach and in the prepyloric area a 2-cm perforation in the area was noted. It was closed with a single 3-0 silk stitch interrupted fashion to control contamination. The abdomen was then suctioned to succus and irrigated with 2 L of sterile irrigation fluid. We then turned our attention to laying in a [place] Singh omental patch. A tunnel of omentum was selected and 2-0 silk stitches were laid in standard fashion, 3 in total, at the superior aspect, inferior aspect and middle aspect of the perforation. Omental tongue was then laid in and tied down with a 2-0 silk stitch. Once complete, the integrity of the stomach was tested with insufflation and elevation of gas from the NG tube which had been placed in position across the site. The NG tube was then affixed and the patient had the remainder of the hemostasis obtained. The remainder of the gastrocolic ligament was then packed above it to wall off the collection and a CHRIST, so a 10 flat was laid across the area to act as a reservoir for remaining drainage. The abdomen was again irrigated with 2 L of sterile irrigation fluid. The patient then had the inferior and superior aspects of the midline laparotomy incision closed with No. 1 looped PDS from a superior and inferior aspect toward the midline and tied in the middle. Once the knot was buried the skin was irrigated at that layer and then closed with patricia. Sterile dressings were placed and the CHRIST was secured with a 2-0 nylon stitch. The patient was awakened from general anesthesia, having tolerated the procedure well. Instrument counts were correct prior to closure of the abdomen. MD ADITI [id number]
[2019-06-02] MEDS: PANTOPRAZOLE SODIUM 40 MG VIAL IVPUSH ONE (21:16)
[2019-06-03] MEDS ORDERED: PIPERACILLIN/TAZOBACTAM 3.375 GM VIAL IVPB ONE ×3 (01:43→17:27)
[2019-06-03] MEDS ORDERED: DEXTROSE 5%-WATER - 50 ML IVPB ONE ×2 (01:43→10:21)
[2019-06-03] MEDS: PIPERACILLIN/TAZOB 3.375 GM 3.375 GM in DEXTROSE 5%-WATER - 50 ML IVPB SCH ×3 (01:45→17:34)
[2019-06-03] MEDS: HEPARIN NA (PORCINE) 5,000 UNITS/ML 1ML VIAL SQ SCH ×3 (01:46→17:35)
--- NOTE | 2019-06-03 08:16 | PN ---
Progress Note (short form) - Note Progress Note: Pain Follow up Patient is doing well. No pain complains. Still have NG tube in place. Not using RIB CUTTER. A/P Pain meds requirment is too low. Discontinue RIB CUTTER when orals are started. Rasheeda Osborn MD.
[2019-06-03 08:42] LABS: BASO % 0.8 % (0-2.0); EOS % 4.6 % (0-4.5); HEMOGLOBIN 12.1 GM/dL (11.7-16.9); LYMPH % 21.7 % (8-40); MCH 30.7 pg (25.7-33.7); MCHC 34.6 g/dl (32.0-35.9); MEAN CELL VOLUME 88.7 fl (80-96); MEAN PLT VOLUME 9.6 fl (7.5-11.1); MONO % 9.7 % (3.8-10.2); NEUT % 63.2 % (42.8-82.8); PLATELET COUNT 185 K/MM3 (134-434); RBC 3.95 M/mm3 (4.00-5.60); RDW 13.9 % (11.9-15.9); WHITE BLOOD COUNT 5.1 K/mm3 (4.0-10.0)
[2019-06-03 08:45] LABS: ALBUMIN 2.5 g/dl (3.4-5.0); BILIRUBIN,TOTAL 0.4 mg/dL (0.2-1); BLOOD UREA NITROGEN 11.6 mg/dL (7-18); CALCIUM 8.6 mg/dL (8.5-10.1); CREATININE 0.7 mg/dL (0.55-1.3); POTASSIUM 3.6 mmol/L (3.5-5.1); TOT PROT 5.3 g/dl (6.4-8.2)
[2019-06-03] MEDS: PANTOPRAZOLE SODIUM 40 MG VIAL IVPB SCH ×2 (10:29→21:25)
[2019-06-03] MEDS: FLUCONAZOLE 100 MG/NS 50 ML IVPB SCH (10:31)
[2019-06-03] MEDS: NICOTINE 14 MG/24 HOURS TOPICAL PATCH TD SCH (10:32)
--- NOTE | 2019-06-03 12:40 | PN ---
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 MEDICAL ASSISTANT BACK OFFICE MEDICAL ASSISTANT GIOVANA; Protocol Stop: 06/06/19 17:14 Last Admin: 05/30/19 20:30 Dose: 10 mg Metronidazole (Flagyl 500mg Premixed Ivpb -) 500 mg in 100 mls @ 100 mls/hr IVPB Q8H-IV [facility]NA Last Admin: 06/03/19 10:30 Dose: 100 mls/hr Piperacillin Sod/Tazobactam (Sod 3.375 gm/ Dextrose) 50 mls @ 100 mls/hr IVPB Q8H-IV [facility]NA; Protocol Last Admin: 06/03/19 10:29 Dose: 100 mls/hr Fluconazole (Diflucan 100 Mg/Ns Premixed Ivpb -) 50 mls @ 50 mls/hr IVPB DAILY [facility] Last Admin: 06/03/19 10:31 Dose: 50 mls/hr Potassium Chloride/Dextrose/Sod Cl (D5-1/2ns+20 Meq Kcl -) 20 meq in 1,000 mls @ 100 mls/hr IV ASDIR [facility] Last Admin: 06/02/19 17:09 Dose: 100 mls/hr Nicotine (Nicoderm Patch -) 14 mg TD DAILY [facility] Last Admin: 06/03/19 10:32 Dose: 14 mg Ondansetron HCl (Zofran Injection) 4 mg IVPUSH Q8H PRN PRN Reason: NAUSEA Pantoprazole Sodium (Protonix Iv) 40 mg IVPB BID [facility] Last Admin: 06/03/19 10:29 Dose: 40 mg - Objective Vital Signs: Vital Signs Temperature 98.1 F 06/03/19 05:58 Pulse Rate 58 L 06/03/19 05:58 Respiratory Rate 18 06/03/19 05:58 Blood Pressure 140/88 06/03/19 05:58 O2 Sat by Pulse Oximetry (%) 96 06/02/19 21:00 Constitutional: Yes: No Distress, Calm Cardiovascular: Yes: S1, S2 Respiratory: Yes: Regular, CTA Bilaterally Gastrointestinal: Yes: Normal Bowel Sounds, Soft, Other (inscision c/d/i,drain in place) Musculoskeletal: Yes: WNL Extremities: Yes: WNL Neurological: Yes: Alert, Oriented Psychiatric: Yes: Alert, Oriented Labs: CBC, BMP 06/03/19 07:07 06/03/19 07:07 INR, PTT INR 0.94 (0.83-1.09) 05/30/19 11:56 Assessment/Plan Problem List - Problems (1) Perforated abdominal viscus Code(s): [id number] - (2) HTN (hypertension) Code(s): I10 - ESSENTIAL (PRIMARY) HYPERTENSION Qualifiers: Hypertension type: essential hypertension Qualified Code(s): I10 - Essential (primary) hypertension (3) Abdominal pain in male Code(s): R10.9 - UNSPECIFIED ABDOMINAL PAIN (4) NSAID induced gastritis Code(s): K29.60 - OTHER GASTRITIS WITHOUT BLEEDING; T39.395A - ADVERSE EFFECT OF NONSTEROIDAL ANTI-INFLAMMATORY DRUGS, INIT (5) NSAID-associated gastropathy Code(s): K31.9 - DISEASE OF STOMACH AND DUODENUM, UNSPECIFIED; T39.395A - ADVERSE EFFECT OF NONSTEROIDAL ANTI-INFLAMMATORY DRUGS, INIT plan continue abx await for surgical final plan continue antifungal rest as per the team
[2019-06-03] MEDS ORDERED: DEXTROSE 5%-WATER - 100 ML IVPB ONE (17:27)
[2019-06-03] MEDS: D5-1/2NS+20 MEQ KCL - 20 MEQ/1,000 ML INFUS.BAG IV SCH (17:34)
[2019-06-04] MEDS: PIPERACILLIN/TAZOB 3.375 GM 3.375 GM in DEXTROSE 5%-WATER - 50 ML IVPB SCH ×2 (02:14→09:48)
[2019-06-04] MEDS ORDERED: DEXTROSE 5%-WATER - 100 ML IVPB ONE (03:05)
[2019-06-04] MEDS ORDERED: PIPERACILLIN/TAZOBACTAM 3.375 GM VIAL IVPB ONE ×2 (03:05→09:14)
[2019-06-04] MEDS: D5-1/2NS+20 MEQ KCL - 20 MEQ/1,000 ML INFUS.BAG IV SCH (03:12)
[2019-06-04] MEDS ORDERED: PT OWN MED DRAWER 7, Y5N ONE (05:46)
[2019-06-04 08:38] LABS: BASO % 0.7 % (0-2.0); EOS % 5.5 % (0-4.5); HEMATOCRIT 39.8 % (35.4-49); HEMOGLOBIN 13.6 GM/dL (11.7-16.9); LYMPH % 23.3 % (8-40); MCH 30.6 pg (25.7-33.7); MEAN CELL VOLUME 89.9 fl (80-96); MONO % 9.3 % (3.8-10.2); NEUT % 61.2 % (42.8-82.8); PLATELET COUNT 219 K/MM3 (134-434); RBC 4.43 M/mm3 (4.00-5.60); RDW 14.1 % (11.9-15.9); WHITE BLOOD COUNT 6.3 K/mm3 (4.0-10.0)
[2019-06-04] MEDS ORDERED: DEXTROSE 5%-WATER - 50 ML IVPB ONE (09:14)
[2019-06-04] MEDS: PANTOPRAZOLE SODIUM 40 MG VIAL IVPB SCH (09:16)
[2019-06-04] MEDS: FLUCONAZOLE 100 MG/NS 50 ML IVPB SCH (09:16)
[2019-06-04] MEDS: NICOTINE 14 MG/24 HOURS TOPICAL PATCH TD SCH (09:17)
[2019-06-04 09:31] LABS: ALBUMIN 2.8 g/dl (3.4-5.0); BILIRUBIN,TOTAL 0.4 mg/dL (0.2-1); BLOOD UREA NITROGEN 9.2 mg/dL (7-18); CREATININE 0.8 mg/dL (0.55-1.3); POTASSIUM 3.7 mmol/L (3.5-5.1); TOT PROT 5.9 g/dl (6.4-8.2)
[2019-06-04 09:54] VITALS: BP 122/78; PULSE 61; TEMP 97.4
[2019-06-04] MEDS: HEPARIN NA (PORCINE) 5,000 UNITS/ML 1ML VIAL SQ SCH (10:51)
--- NOTE | 2019-06-04 12:42 | PN ---
Progress Note, Physician - Current Medication List Current Medications: Active Medications Acetaminophen (Ofirmev Injection -) 1,000 mg IVPB Q6H PRN PRN Reason: FEVER Last Admin: 05/30/19 20:20 Dose: 1,000 mg Heparin Sodium (Porcine) (Heparin -) 5,000 unit SQ Q8H-IV [facility] Last Admin: 06/04/19 10:51 Dose: 5,000 unit Hydromorphone HCl (Hydromorphone 10 Mg/50 Ml-Ns) 10 mg HOUSEKEEPER/LAUNDRY ASSISTANT HOUSEKEEPER/LAUNDRY ASSISTANT GIOVANA; Protocol Stop: 06/06/19 17:14 Last Admin: 05/30/19 20:30 Dose: 10 mg Metronidazole (Flagyl 500mg Premixed Ivpb -) 500 mg in 100 mls @ 100 mls/hr IVPB Q8H-IV [facility] Last Admin: 06/04/19 10:48 Dose: 100 mls/hr Piperacillin Sod/Tazobactam (Sod 3.375 gm/ Dextrose) 50 mls @ 100 mls/hr IVPB Q8H-IV [facility]; Protocol Last Admin: 06/04/19 09:48 Dose: 100 mls/hr Fluconazole (Diflucan 100 Mg/Ns Premixed Ivpb -) 50 mls @ 50 mls/hr IVPB DAILY [facility] Last Admin: 06/04/19 09:16 Dose: 50 mls/hr Potassium Chloride/Dextrose/Sod Cl (D5-1/2ns+20 Meq Kcl -) 20 meq in 1,000 mls @ 100 mls/hr IV ASDIR [facility] Last Admin: 06/04/19 03:12 Dose: 100 mls/hr Nicotine (Nicoderm Patch -) 14 mg TD DAILY [facility] Last Admin: 06/04/19 09:17 Dose: 14 mg Ondansetron HCl (Zofran Injection) 4 mg IVPUSH Q8H PRN PRN Reason: NAUSEA Pantoprazole Sodium (Protonix Iv) 40 mg IVPB BID [facility] Last Admin: 06/04/19 09:16 Dose: 40 mg - Objective Vital Signs: Vital Signs Temperature 97.4 F L 06/04/19 09:54 Pulse Rate 61 06/04/19 09:54 Respiratory Rate 20 06/04/19 09:54 Blood Pressure 122/78 06/04/19 09:54 O2 Sat by Pulse Oximetry (%) 97 06/03/19 21:00 Labs: CBC, BMP 06/04/19 08:20 06/04/19 08:20 INR, PTT INR 0.94 (0.83-1.09) 05/30/19 11:56
--- NOTE | 2019-06-04 20:32 | DS ---
Physical Examination Vital Signs: Vital Signs Temperature 97.4 F L 06/04/19 09:54 Pulse Rate 61 06/04/19 09:54 Respiratory Rate 20 06/04/19 09:54 Blood Pressure 122/78 06/04/19 09:54 O2 Sat by Pulse Oximetry (%) 97 06/03/19 21:00 Findings/Remarks: stable during hospitalization, no complaints. tolerating diet. Constitutional: Yes: Well Nourished, No Distress, Calm Eyes: Yes: Conjunctiva Clear, EOM Intact HENT: Yes: Atraumatic, Normocephalic Neck: Yes: Supple, Trachea Midline Cardiovascular: Yes: Regular Rate and Rhythm, S1, S2 Respiratory: Yes: Regular, CTA Bilaterally Gastrointestinal: Yes: Normal Bowel Sounds, Soft, Abdomen, Obese. No: Tenderness, Tenderness, Rebound ...Rectal Exam: Yes: Deferred Renal/: No: CVA Tenderness - Left, CVA Tenderness - Right Breast(s): No: Mass, Skin Changes Musculoskeletal: No: Joint Swelling, Muscle Pain Extremities: No: Cool, Cyanosis Edema: No Peripheral Pulses WNL: Yes Peripheral Pulses: Left Radial: 2+, Right Radial: 2+, Left Doralis Pedis: 2+, Right Dorsalis Pedis: 2+, Left Femoral: 2+, Right Femoral: 2+ Wound/Incision: Yes: Clean/Dry, Well Approximated, [place] Intact, Open to air, Draining (CHRIST LUQ drained 50ml today serosanguinous) Neurological: Yes: Alert, Oriented Psychiatric: Yes: Alert, Oriented Labs: CBC, BMP 06/04/19 08:20 06/04/19 08:20 Discharge Summary Reason For Visit: PERFORATION OF INTESTINE perforated pre-pyloric ulcer Procedures: Principal: exploratory laparotomy, shannan omental patch of perforated pre-pyloric ulcer Hospital Course: admitted for emergency procedure. uneventful surgery. leak test negative. stable for discharge home Condition: Improved - Instructions Diet, Activity, Other Instructions: Postoperative instructions: You had a omental patch of gastric ulcer perforation on DATE by Dr. Luis Antonio Sepulveda of [facility]. Activity: Resume your usual activities gradually, but no heavy exertion or lifting more than 10-15 pounds for 4-6 weeks. Remove dressings 48 hours after surgery, if they are not already off. You may shower daily starting then, just pat the incision areas dry. No bath or swimming until skin incisions have healed. Abbie should not need to be recovered with any dressings, unless you have been told otherwise. Eat lightly at first, but advance to your usual diet as tolerated. Pain: For pain, you may use and alternate Tylenol (acetaminophen) 1-2 pills as needed; Do not take more than 4000 mg of acetaminophen in a day. Take medications as prescribed or indicated on the labeling. Follow-up: Call Dr. Sepulveda' office at [phone] to make your postop appointment (Monday in approximately 2 weeks after surgery as advised). Clinic is held in the Diagnostic [facility] on the first floor of [facility]. Call the office if you have: * increasing pain not responsive to pain medication * fever of 101F or higher * vomiting * unusual or increasing bleeding or drainage from wounds * increasing redness or swelling at wound sites * inability to urinate Also, see your primary medical doctor within 1-2 weeks. Disposition: HOME - Home Medications Comprehensive Discharge Medication List: Ambulatory Orders Amox-Tr/K Cl [Augmentin - 875Mg Tablet] 1 tab PO BID #14 tablet 06/03/19 Oxycodone HCl/Acetaminophen [Percocet 5/325 -] 1 tab PO Q6H #40 tab MDD 5 Pantoprazole Sodium [Protonix] 40 mg PO DAILY 30 Days #30 tablet. 06/03/19
== END 2019-06-04 14:29 | disposition home or self-care (01) | DRG 223 ==
LOC: JER 11:15 → JASUSAT 16:41 → J6S 23:09 → JASUSAT 23:10 → J6S 23:10
PROC: 0DU907Z Supplement Duodenum with Autologous Tissue Substitute, Open Approach (ICD-10-PCS; principal; 2019-05-30 18:00)
DX: K25.5 Chronic or unspecified gastric ulcer with perforation (principal); M54.9 Dorsalgia, unspecified; I10 Essential (primary) hypertension; M54.5 Low back pain; R62.59 Other lack of expected normal physiological development in childhood; F17.210 Nicotine dependence, cigarettes, uncomplicated; K29.60 Other gastritis without bleeding; K31.9 Disease of stomach and duodenum, unspecified; T39.395A Adverse effect of other nonsteroidal anti-inflammatory drugs [NSAID], initial encounter; E87.2 Acidosis; M21.612 Bunion of left foot; K65.9 Peritonitis, unspecified; I83.93 Asymptomatic varicose veins of bilateral lower extremities; E66.9 Obesity, unspecified; Z68.25 Body mass index [BMI] 25.0-25.9, adult; Z79.1 Long term (current) use of non-steroidal anti-inflammatories (NSAID)
CPT/HCPCS: 36415; 71045-TC-FY; 74177-TC; 74251-TC-FY; 76700-TC; 80048; 80053; 82550; 83605; 83690; 83735; 84100; 84484; 85025; 85027; 85610; 85730; 86677; 86850; 86900; 86901; 87040; 87070; 87205; 93005; 93010; 94760; 99284-25; J0131; J1644; J7030

== ENCOUNTER 2021-11-03 14:26 | Observation (INO) | payer OTHER ==
[2021-11-03] MEDS ORDERED: VANCOMYCIN/WATER 1,250 MG/250 ML BAG IVPB ONE (19:12)
[2021-11-03] MEDS ORDERED: PIPERACILLIN/TAZOB 3.375 GM 3.375 GM in DEXTROSE 5%-WATER - 50 ML IVPB ONE (19:13)
[2021-11-03] MEDS ORDERED: VANCOMYCIN 1 GRAM (PRE-DOCKED) 1,000 MG/250 ML BAG IVPB ONE ×2 (19:20→19:21)
[2021-11-03] MEDS ORDERED: PIPERACILLIN/TAZOB 3.375 GM 3.375 GM/50 ML BAG IVPB ONE ×2 (19:21→19:31)
[2021-11-03 20:15] LABS: BASO % 0.9 % (0-2.0); EOS % 2.7 % (0-4.5); HEMATOCRIT 44.9 % (35.4-49); HEMOGLOBIN 15.2 GM/dL (11.7-16.9); LYMPH % 44.2 % (8-40); MCH 29.5 pg (25.7-33.7); MCHC 33.8 g/dl (32.0-35.9); MEAN CELL VOLUME 87.4 fl (80-96); MEAN PLT VOLUME 8.5 fl (7.5-11.1); MONO % 6.2 % (3.8-10.2); PLATELET COUNT 229 10^3/uL (134-434); RBC 5.13 M/mm3 (4.00-5.60); RDW 14.2 % (11.9-15.9); WHITE BLOOD COUNT 8.4 K/mm3 (4.0-10.0)
[2021-11-03 20:20] LABS: INR 0.98 (0.83-1.09); PROTHROMBIN TIME (PATIENT) 11.5 SEC (9.7-13.0)
[2021-11-03 20:32] LABS: CHLORIDE 106 mmol/L (98-107); SODIUM 138 mmol/L (136-145)
[2021-11-03 20:33] LABS: CALCIUM 9.8 mg/dL (8.5-10.1)
[2021-11-03 20:34] LABS: ALBUMIN 4.1 g/dl (3.4-5.0); ANION GAP 7 MMOL/L (8-16); CO2 25 mmol/L (21-32); GLUCOSE,RANDOM 104 mg/dL (74-106)
[2021-11-03 20:37] LABS: CREATININE 0.9 mg/dL (0.55-1.3); SGOT/AST 26 U/L (15-37); SGPT/ALT 54 U/L (13-61)
[2021-11-03 20:39] LABS: BILIRUBIN,TOTAL 0.4 mg/dL (0.2-1)
[2021-11-03 20:40] LABS: ALK PHOS 84 U/L (45-117); TOT PROT 7.6 g/dl (6.4-8.2)
[2021-11-03 21:01] LABS: ERYTHROCYTE SEDIMENTATION RATE 5 mm/hr (0-20)
[2021-11-04] MEDS ORDERED: VANCOMYCIN 1,000 MG in DEXTROSE 5%-WATER - 250 ML IVPB SCH (02:15)
[2021-11-04] MEDS ORDERED: VANCOMYCIN 1 GRAM (PRE-DOCKED) 1,000 MG/250 ML BAG IVPB ONE (02:33)
[2021-11-04] MEDS ORDERED: VANCOMYCIN 1 GRAM (PRE-DOCKED) 1,000 MG/250 ML BAG IVPB SCH (03:00)
[2021-11-04 04:59] VITALS: BMI 25.4
[2021-11-04] MEDS: INSULIN SLIDING SCALE (NOVOLOG) 1 VIAL SQ SCH ×4 (06:48→22:52)
[2021-11-04] MEDS ORDERED: PIPERACILLIN/TAZOB 3.375 GM 3.375 GM/50 ML BAG IVPB SCH (10:00)
[2021-11-04] MEDS ORDERED: PIPERACILLIN/TAZOB 3.375 GM 3.375 GM in DEXTROSE 5%-WATER - 50 ML IVPB SCH (10:00)
[2021-11-04] MEDS ORDERED: DEXTROSE 5%-WATER - 50 ML IVPB ONE ×2 (10:11→17:37)
[2021-11-04] MEDS ORDERED: PIPERACILLIN/TAZOBACTAM 3.375 GM VIAL IVPB ONE ×2 (10:11→17:37)
[2021-11-04] MEDS ORDERED: PIPERACILLIN/TAZOB 3.375 GM 3.375 GM in DEXTROSE 5%-WATER - 3.375 GM/50 ML IVPB IVPB SCH (10:15)
[2021-11-04] MEDS ORDERED: PT OWN MED DRAWER 7, Y5N ONE ×2 (17:37→17:41)
[2021-11-04] MEDS: MINERAL OIL/PET HY-PHL TOPICAL OINTMENT 454 GM JAR TP SCH (17:50)
[2021-11-04] MEDS: PIPERACILLIN/TAZOB 3.375 GM 3.375 GM in DEXTROSE 5%-WATER - 50 ML IVPB SCH (17:54)
[2021-11-04] MEDS: HEPARIN NA (PORCINE) 5,000 UNITS/ML 1ML VIAL SQ SCH ×2 (19:05→22:42)
[2021-11-04] MEDS ORDERED: INSULIN (NOVOLOG) ASPART 100 UNITS/ML 10ML VIAL ONE (22:32)
[2021-11-04] MEDS: COLLAGENASE CLOSTRIDIUM HIST. 30 GRAMS TUBE TP SCH (22:42)
[2021-11-05] MEDS ORDERED: PIPERACILLIN/TAZOBACTAM 3.375 GM VIAL IVPB ONE ×3 (01:11→16:42)
[2021-11-05] MEDS ORDERED: DEXTROSE 5%-WATER - 50 ML IVPB ONE ×3 (01:11→16:42)
[2021-11-05] MEDS: PIPERACILLIN/TAZOB 3.375 GM 3.375 GM in DEXTROSE 5%-WATER - 50 ML IVPB SCH ×3 (03:14→16:59)
[2021-11-05] MEDS: HEPARIN NA (PORCINE) 5,000 UNITS/ML 1ML VIAL SQ SCH ×3 (06:52→21:57)
[2021-11-05] MEDS: INSULIN SLIDING SCALE (NOVOLOG) 1 VIAL SQ SCH ×4 (06:52→21:57)
[2021-11-05] MEDS: MINERAL OIL/PET HY-PHL TOPICAL OINTMENT 454 GM JAR TP SCH (11:33)
[2021-11-05] MEDS: COLLAGENASE CLOSTRIDIUM HIST. 30 GRAMS TUBE TP SCH (11:33)
[2021-11-06] MEDS ORDERED: PIPERACILLIN/TAZOBACTAM 3.375 GM VIAL IVPB ONE ×2 (01:54→09:31)
[2021-11-06] MEDS ORDERED: DEXTROSE 5%-WATER - 50 ML IVPB ONE (01:54)
[2021-11-06] MEDS: PIPERACILLIN/TAZOB 3.375 GM 3.375 GM in DEXTROSE 5%-WATER - 50 ML IVPB SCH ×2 (02:50→09:33)
[2021-11-06] MEDS: HEPARIN NA (PORCINE) 5,000 UNITS/ML 1ML VIAL SQ SCH ×2 (06:49→14:02)
[2021-11-06] MEDS: INSULIN SLIDING SCALE (NOVOLOG) 1 VIAL SQ SCH ×3 (06:57→16:40)
[2021-11-06 08:40] LABS: BASO % 1.1 % (0-2.0); EOS % 3.1 % (0-4.5); HEMATOCRIT 44.1 % (35.4-49); HEMOGLOBIN 14.9 GM/dL (11.7-16.9); LYMPH % 43.9 % (8-40); MCH 29.7 pg (25.7-33.7); MCHC 33.9 g/dl (32.0-35.9); MEAN CELL VOLUME 87.9 fl (80-96); MEAN PLT VOLUME 8.9 fl (7.5-11.1); MONO % 6.5 % (3.8-10.2); NEUT % 45.4 % (42.8-82.8); PLATELET COUNT 204 10^3/uL (134-434); RBC 5.02 M/mm3 (4.00-5.60); RDW 13.6 % (11.9-15.9); WHITE BLOOD COUNT 5.8 K/mm3 (4.0-10.0)
[2021-11-06 09:01] LABS: ALBUMIN 3.6 g/dl (3.4-5.0); BLOOD UREA NITROGEN 10.9 mg/dL (7-18); CALCIUM 9.5 mg/dL (8.5-10.1)
[2021-11-06 09:05] LABS: BILIRUBIN,TOTAL 0.5 mg/dL (0.2-1); TOT PROT 6.8 g/dl (6.4-8.2)
[2021-11-06] MEDS: COLLAGENASE CLOSTRIDIUM HIST. 30 GRAMS TUBE TP SCH (09:33)
[2021-11-06] MEDS: MINERAL OIL/PET HY-PHL TOPICAL OINTMENT 454 GM JAR TP SCH (09:33)
[2021-11-06 14:21] VITALS: BP 106/72; PULSE 66; TEMP 98.2
[2021-11-06] MEDS ORDERED: AMOX TR/POT CLAV 875MG/125MG TABLETS (FP) PO SCH (17:30)
== END 2021-11-06 18:18 | disposition home or self-care (01) ==
LOC: JER 14:26 → UNDOADMOB 21:05 → JERBED 21:05 → INTOOBSV 21:05 → J7W 11-04 04:29 → JERBED 11-04 04:29 → J7W 11-04 15:24 → JERBED 11-04 15:24
PROVIDERS: ADMIT Internal Medicine; ATTEND Internal Medicine
PROC: 3E023GC Introduction of Other Therapeutic Substance into Muscle, Percutaneous Approach (ICD-10-PCS; principal; 2021-11-04)
PROC: 3E03329 Introduction of Other Anti-infective into Peripheral Vein, Percutaneous Approach (ICD-10-PCS; 2021-11-04)
DX: L02.612 Cutaneous abscess of left foot (principal); L03.116 Cellulitis of left lower limb; G89.29 Other chronic pain; M21.612 Bunion of left foot; I10 Essential (primary) hypertension; E11.9 Type 2 diabetes mellitus without complications; R62.50 Unspecified lack of expected normal physiological development in childhood; F17.210 Nicotine dependence, cigarettes, uncomplicated; Z29.9 Encounter for prophylactic measures, unspecified
CPT/HCPCS: 36415; 71045-TC-FY; 73630-TC-LT; 80053; 82962; 85025; 85610; 85651; 86140; 86850; 86900; 86901; 87040; 93005; 93010; 96365; 96366; 96367; 96372; 96375; 99285-25; C9803-CS; G0378; J1644; U0003; U0005

== ENCOUNTER 2025-02-20 16:53 | Emergency (ER) | payer OTHER ==
[2025-02-20 17:03] VITALS: RESP 18; BMI 25.5
[2025-02-20 18:46] LABS: MCHC 33.3 g/dl (32.3-36.5); MEAN PLT VOLUME 10.4 fl (9.4-12.4); PLATELET COUNT 229 x10^3/uL (163-337); RDW 13.2 % (12.2-16.1)
[2025-02-20 19:12] LABS: POTASSIUM 4.7 mmol/L (3.5-5.1)
[2025-02-20 19:13] LABS: CALCIUM 10.5 mg/dL (8.5-10.1)
[2025-02-20 19:14] LABS: ALBUMIN 3.7 g/dl (3.4-5.0); BLOOD UREA NITROGEN 11.1 mg/dL (7-18)
[2025-02-20] MEDS ORDERED: PIPERACILLIN/TAZOB 3.375 GM 3.375 GM/50 ML BAG IVPB ONE (19:15)
[2025-02-20 19:17] LABS: CREATININE 0.9 mg/dL (0.55-1.3)
[2025-02-20 19:19] LABS: BILIRUBIN,TOTAL 0.4 mg/dL (0.2-1); TOT PROT 7.4 g/dl (6.4-8.2)
[2025-02-20] MEDS: PIPERACILLIN/TAZOB 3.375 GM 3.375 GM in DEXTROSE 5%-WATER - 50 ML IVPB ONE (19:25)
[2025-02-20 20:00] LABS: ERYTHROCYTE SEDIMENTATION RATE 13 mm/hr (0-20)
[2025-02-20] MEDS ORDERED: VANCOMYCIN/WATER 1250 MG 1,250 MG/250 ML BAG IVPB ONE (20:00)
[2025-02-20] MEDS: VANCOMYCIN/WATER 1250 MG 1,250 MG/250 ML BAG IVPB ONE (20:09)
[2025-02-20 20:40] VITALS: BP 110/77; PULSE 71; TEMP 98
[2025-02-20] MEDS ORDERED: DALBAVANCIN HCL 500 MG VIAL (RESTRICTED TO ID ONLY) IVPB ONE (21:31)
[2025-02-20] MEDS: DALBAVANCIN HCL 1,500 MG in DEXTROSE 5%-WATER - 500 ML IVPB ONE (21:48)
== END 2025-02-20 22:45 | disposition left against medical advice (07) ==
LOC: JER 16:53
DX: L03.116 Cellulitis of left lower limb (principal)
CPT/HCPCS: 36415; 73630-TC-LT; 80053; 85027; 85651; 86140; 87040; 93005; 93010; 99285-25; J0875